=== PATIENT | female | born 1975 | race Caucasian/White ===

== ENCOUNTER → 2017-09-10 11:18 | Outpatient (CLI) | payer BC, SELFPAY ==
[2017-09-11 14:37] LABS: Mucous, Urine 0 SEEN /hpf (<or=2+); Red Blood Cells-Urine 0 SEEN /hpf (0-5); Squamous Epithelial Cells - UA 0 SEEN /hpf (5-10); White Blood Cells 0 SEEN /hpf (0-5)
[2017-09-11 14:44] LABS: Color, Urine Yellow (Yellow); Glucose, Dipstick Normal (Normal); Ketone-Dipstick Negative (Negative); Leukocyte Esterase-Dipstick 25 /ul (Negative); Nitrite-Dipstick Positive (Negative); Occult Blood-Urine Negative /ul (Negative); Protein-Dipstick 15 mg/dl (Negative); Urine Bilirubin Dipstick Negative (Negative); Urine Clarity Cloudy (Clear); Urine Urobilinogen Normal (Normal)
[2017-09-11 14:52] LABS: Bacteria 2+ /hpf (None Seen)
== END ==
PROVIDERS: Family Provider Family Medicine; PCP Family Medicine; Visit Provider Physician Assistant Medical
DX: N39.0 Urinary tract infection, site not specified (principal)
CPT/HCPCS: 81001; 87086; 87088; 87186

== ENCOUNTER 2018-08-14 02:44 | Emergency (ER) | payer BC, SELFPAY ==
[2018-08-14 02:44] VITALS: BP 131/64; PULSE 84; RESP 15; TEMP 36.6; O2SAT 100; BMI 30.5
--- NOTE | 2018-08-14 03:03 | RAD_ITS ---
STUDY: X-RAY CHEST REASON FOR EXAM: Female, 42 years old. Pain and back started Saturday, pain under right breast radiating to back, breathing makes it worse. TECHNIQUE: PA and lateral views of the chest. COMPARISON: 02/21/2017 FINDINGS: There are superimposed monitor leads. There is no demonstrated pneumothorax. Mild hyperinflation. Mild interstitial prominence.. There is no demonstrated pleural abnormality. Normal size heart. Normal mediastinum and john. Normal visualized pulmonary arteries. Normal visualized aortic arch and descending thoracic aorta. Mild degenerative changes of the thoracic spine. Mild loss of vertebral body height T8 vertebral body not significantly changed since previous exam. Normal visualized ribs, clavicles, and shoulders. There is demineralization of osseous structures. There is no demonstrated abnormality of the visualized soft tissue structures of the upper abdomen. RAD/Chest PA and Lateral IMPRESSION: Stable mild hyperinflation, interstitial prominence, mild loss of vertebral body height T8. Bones appear osteopenic. No pulmonary edema, congestive heart failure or confluent pneumonia. There is no demonstrated pneumothorax. Electronically Signed: Luma Guillory MD at 3:52 EST , Service support ,
--- NOTE | 2018-08-14 03:03 | EKG12_ITS ---
Test Reason : CHEST OTHER Blood Pressure : / mmHG Vent. Rate : 073 BPM Atrial Rate : 073 BPM P-R Int : 152 ms QRS Dur : 082 ms QT Int : 362 ms P-R-T Axes : 050 055 049 degrees QTc Int : 398 ms Normal sinus rhythm Low voltage QRS Borderline ECG Confirmed by SELENA SHINE, VIKY ([id number]), sound editor PERLA WEST ([id number]) on 08/18/2018 9:14:31 AM Referred By: JO Confirmed By:VIKY WALTERS MD
[2018-08-14 03:22] LABS: Absolute Lymphocyte Count 4.52 X10^3/ul (0.83-4.51); Basophil# 0.05 X10^3/uL; Basophil% 0.3 % (0-1); Eosinophil# 0.25 X10^3/uL; Eosinophils% 1.7 % (0-5); Hematocrit 41.5 % (37-47); Hemoglobin 14.2 g/dl (12.0-15.0); Lymphocyte # 4.52 X10^3/ul (4.0); Lymphocyte % 30.2 % (19-41); Mean Corp Hgb Conc 34.2 g/gl (32-36); Mean Corpuscular Hgb 32.9 pg (27.0-32.0); Mean Corpuscular Volume 96.3 fL (81-99); Mean Platelet Vol. 11.1 fl (6.2-12.0); Monocyte% 7.3 % (0-10); Platelet Count 236 K/mm3 (150-450); RBC Distribution Width CV 12.4 % (11.6-14.6); RBC Distribution Width SD 42.9 fl (35.1-43.9); Red Blood Count 4.31 M/mm3 (4.2-5.4)
[2018-08-14 03:23] LABS: POSITIVE COUNT NO; POSITIVE DIFFERENTIAL NO; POSITIVE MORPHOLOGY NO
[2018-08-14] MEDS: Morphine 4 MG/ML Syringe IV (03:27)
[2018-08-14] MEDS: Ondansetron 4 MG/2 ML Vial IV (03:28)
[2018-08-14 03:38] LABS: AST(SGOT) 15 U/L (15-37); Alanine Aminotransfer ALT/SGPT 18 U/L (13-56); Albumin, Serum 3.7 g/dL (3.2-5.0); Alkaline Phosphatase 95 U/L (45-117); Anion Gap 5 (5-15); BUN 9 mg/dL (7-18); BUN/Creat Ratio 12.5 RATIO (10-20); Bilirubin, Direct 0.08 mg/dL (0.00-0.30); Calcium,Total 8.7 mg/dL (8.5-10.1); Chloride 107 mmol/L (98-107); Creatinine, Serum 0.72 mg/dL (0.55-1.02); EST Glomerular Filtration Rate 93 mL/min (>60); Est Glom Filt Rate - Afr Amer 112 mL/min (>60); Estimated Creatinine Clearance 82.48 ml/min; Globulin 3.5 g/dL (2.2-4.2); Glucose 91 mg/dL (74-106); Lipase 166 U/L (73-393); Potassium 3.8 mmol/L (3.5-5.1); Protein, Total 7.2 g/dL (6.4-8.2); Sodium Level 142 mmol/L (136-145)
[2018-08-14 03:57] LABS: D-Dimer Quantitative (DVT/PE) 0.53 FEU/ug/m (0.27-0.49)
--- NOTE | 2018-08-14 04:00 | CT_ITS ---
STUDY: CTA CHEST REASON FOR EXAM: Female, 42 years old. Pain on the right breast radiating to back, history of asthma RADIATION DOSAGE (If Supplied By Facility): CTDIvol = ( 8.25 ) mGy, DLP = ( 269.32 ) mGycm TECHNIQUE: The examination was performed with the intravenous administration of 75 ml of Isovue 370 contrast material. Post-processing of the angiographic images was performed, with multiplanar reformation and 3D reconstruction. Individualized dose optimization techniques were used for this CT. COMPARISON: CTA Chest 03/04/2016. Chest x-ray 08/14/2018. FINDINGS: Normal enhancement of the main pulmonary artery and right and left pulmonary arteries. Normal enhancement of the bilateral peripheral pulmonary arteries. There is no demonstrated pulmonary embolism. Normal thoracic aorta and visualized great vessels. There is no demonstrated aortic dissection. Normal heart and pericardium. Normal mediastinum. Normal hilar regions. Normal visualized trachea and bronchi. The lungs are well expanded. Normal pulmonary parenchyma. Normal pleura. Normal chest wall structures. There are slight increase in degenerative changes of thoracic spine. Bilateral intact ribs and sternum. Mild kyphosis. Mild loss of anterior vertebral body height T8 slightly increased since previous examination. Normal visualized upper abdomen. CT/CTA Chest W/WO Contrast IMPRESSION: Normal CTA chest examination, without a demonstrated pulmonary embolism or arterial dissection. Mild increase of degenerative changes of the thoracic spine and loss of vertebral body height T8 vertebral body anteriorly. Electronically Signed: Luma Guillory MD at 4:52 EST , Service support ,
[2018-08-14 04:53] VITALS: BP 112/66; PULSE 76; RESP 18; O2SAT 99
--- NOTE | 2018-08-14 04:56 | ED.VISSUMM ---
- ER Visit Summary Date of Service: 08/14/18 Chief Complaint: Chest pain History of Present Illness: The patient is a 42 F who presents with chest pain. She complains about 4-5 days of right posterior thoracic pain which is sharp in nature. Today she began to have pain under her right breast. This is sharp. It is worse with inspiration or deep breathing. She also feels short of breath she has had a productive cough. She denies fever congestion rhinorrhea. She denies any leg pain or swelling. No prior history of DVT or pulmonary embolism, no known coagulopathies, no recent travel or immobilization. She did have a similar presentation in 2016 and underwent evaluation including CTA of the chest which was unremarkable and this was ultimately attributed to pleurisy. Physical Examination: Afebrile vitals are normal Moist mucous membranes Heart regular rate and rhythm Lungs are clear she does have some right sided chest wall tenderness no rash Abdomen soft nontender nondistended Extremities nontender without edema Alert Test Results: EKG shows normal sinus rhythm at a rate of 73. Labs are notable for white blood cell count 15.0 normal hepatic function and lipase, negative troponin, d-dimer 0.53. Two-view chest x-ray shows stable hyperinflation and some interstitial prominence no edema CHF or confluent pneumonia. CTA of the chest was normal. Emergency Department Course and Treatment: Patient underwent workup as above which is only notable for leukocytosis. No infiltrate on chest x-ray or CT of the chest. Number embolism is ruled out. Given that she has had a recent productive cough this may be related to pleurisy and chest wall pain. She was given a prescription for naproxen. She was advised to follow-up as an outpatient with her primary care physician but understands to return for new or worsening symptoms. She was instructed on specific signs and symptoms to monitor for. All questions answered bedside. Patient discharged. Treatment Plan: [] Disposition: Discharge Impression: Pleurisy This note was generated with [employer] ([employer]) dictation software. It may contain incorrect words, spelling, and punctuation that were not noted in review of the chart prior to signing ED Disposition - Plan for ED Patient: Chief Complaint: Chest Other Referrals: Trey Villalobos MD [Primary Care Provider] -
--- NOTE | 2018-08-14 05:01 | ED.DEP ---
ED Disposition - Plan for ED Patient: Chief Complaint: Chest Other Instructions: ED Chest Pain Pleurisy Prescriptions: Naproxen [Naprosyn] 500 mg PO BID #20 tab Referrals: Trey Villalobos MD [Primary Care Provider] -
[2018-08-14 05:04] VITALS: BP 117/73; PULSE 80; RESP 17; O2SAT 100
--- OUTSIDE RECORDS SUMMARY | 2018-10-18 17:39 | XMS RPT_ITS ---
:1975 Author Organization OH[facility] Care Team Providers Name Role Phone JUNIE BRIAN (WAITER AND CASHIER) Attending Unavailable PATRICIA TATE (WAITER AND CASHIER) Attending Unavailable Trey Villalobos Primary Care Unavailable Javan Adrian Attending Unavailable Johan Cardoza Attending Unavailable Trey Villalobos Referring Unavailable Trey Villalobos Primary Care Unavailable Janet Aleman Attending Unavailable Janet Aleman Referring Unavailable Trey Villalobos Primary Care Unavailable PROBLEMS PROBLEMS DATE TYPE CONDITION / CODE ATTENDING STATUS SOURCE 09/11/2017 Unknown N39.0 - Urinary Ash Active David tract infection, Janet Community site not Hospital specified / Repository N39.0(ICD-10) PROCEDURES PROCEDURES No Procedure Records FoundRESULTS RESULTS 12 LEAD ELECTROCARDIOGRAM Observed: 08/18/2018 Status: F Source: [place] 9:15 AM [facility] REPOSITORY [facility] Cardiovascular Services [address] [place] [address] 12 Lead EKG 08/14/18 0314 MR#: [id number] Acct: [id number] Name: RADHA PAPPAS Rep #: [id number] : 1975 42 From: Kumar Galan MD Attending Dr: Status: DEP ER Ordering Dr: Javan Adrian MD Date: 08/14/18 Location: ED Sex: F C Admitted: Test Reason : CHEST OTHER Blood Pressure : / mmHG Vent. Rate : 073 BPM Atrial Rate : 073 BPM P-R Int : 152 ms QRS Dur : 082 ms QT Int : 362 ms P-R-T Axes : 050 055 049 degrees QTc Int : 398 ms Normal sinus rhythm Low voltage QRS Borderline ECG Confirmed by KUMAR GALAN MD ([id number]), video effects editor PERLA WEST ([id number]) on 08/18/2018 9:14:31 AM Referred By: JO Confirmed By:KUMAR GALAN MD 08/18/18 0914 Date Kumar Galan MD CC: Javan Adrian MD; Trey Villalobos MD Signed PROGRESS Observed: 08/15/2018 Status: COMPLETED Source: [place] 1:[address] [facility] [place] REPOSITORY [facility] ID: [id number] Author: Junie Brian Service: (none) Author Type: Nurse Practitioner Type: Progress Notes Filed: 08/15/2018 3:16 PM Note Text: HPI/CC: Radha Pappas is a 42 year old female who presents to the office today for ER follow-up. She was to [facility] on 08/14/18 following c/o right sided chest discomfort. Dx: pleurisy Testing completed at the facility: EKG, CXRAY, CTA of chest (all normal). Labwork completed at the facility: CBC (WBC 15); normal hepatic and lipase, neg trop, d-dime 0.53. Other specialist and follow up care: n/a. Refers that she still just doesn't feel good. Refers that she hasn't been sick. Chest xray was normal. CT scan was normal. Refers that she continues with right sided chest pain. Refers that it is under her breast and will shoot up. Hurts to cough/sneeze. She is taking the naproxen for pain. Refers that she is taking it twice daily and last took this morning. She did use her inhaler once, which did help a little bit, but reports needs a new inhaler. HISTORIES: PAST MEDICAL HISTORY Diagnosis Date - Allergic rhinitis, cause unspecified Allergic rhinitis - Dysmenorrhea - Ovarian cyst - Unspecified asthma(493.90) Asthma Unspecified PAST SURGICAL HISTORY Procedure Laterality Date - EXTRACTION ERUPTED TOOTH/EXR - NONE FAMILY HISTORY Problem Relation Age of Onset - Adopted: Yes - Cancer Mother 45 Ovarian Ca in mother [survived] - Diabetes Maternal Grandfather - Diabetes Paternal Grandmother - Diabetes Paternal Grandfather - Heart Maternal Grandmother - Breast Cancer Other Cousin - Breast Cancer Maternal Aunt - Cancer Paternal Aunt Lung Cancer Social History Marital status: Spouse name: Esperanza Years of education: Number of children: 1 Occupational History Occupation Employer Comment Student [employer]* [employer] Social History Main Topics Smoking status: Former Smoker Packs/day: 0.25 Years: 10.00 Types: Cigarettes Quit date: 07/29/2008 Smokeless tobacco: Never Used Alcohol use: No Drug use: No Sexual activity: Yes Partners with: Male control/protection: Vasectomy Current Outpatient Prescriptions on File Prior to Visit: PROAIR HFA 90 mcg/actuation inhaler Inhale 2 (TWO) puffs every FOUR hours for 7 (SEVEN) days. famotidine (PEPCID) 20 mg tablet Take 20 mg by mouth once daily. EPINEPHrine (AUVI-Q) 0.3 mg/0.3 mL auto-injector Inject 0.3 mL intramuscularly as needed (for allergic reaction.Seek emergent medical care immediately after use.Dispense:1 2-packw/guide dog trainer). cetirizine (ZYRTEC) 10 mg tablet Take 1 tablet by mouth once daily as needed. COMPOUNDED PRESCRIPTION Nebulizer for home use. Diagnosis: asthma exacerbation FLUOCINONIDE 0.05 % TOPICAL CREAM Use as directed INHALATIONAL SPACING DEVICE [facility]. Use with combivent as directed No current facility-administered medications on file prior to visit. ALLERGIES Allergen Reactions - Albuterol Other: See Comments causes palpitations and tachycardia - Amoxacillin [Amoxic* Rash, GI Upset - Ceftin [Cefuroxime * GI Upset - Doxycycline GI Upset - Environmental Aller* Cats, dogs, molds - Toradol [Ketorolac * GI Upset nausea - Tramadol GI Upset PHYSICAL EXAMINATION: BP 124/78 (BP Site: Left Arm, BP Position: Sitting, BP Cuff Size: Regular Adult) Pulse 86 Temp 36.7 ?C (98.1 ?F) (Left Tympanic) Resp 14 Wt 75.8 kg (167 lb) SpO2 100% BMI 29.96 kg/m? General appearance: Well appearing, alert, uncomfortable, well-hydrated, well nourished. Skin: Skin color, texture, turgor normal, no suspicious rashes or lesions Head: Normocephalic, no masses, lesions, tenderness or abnormalities Eyes: Anicteric sclera. Pupils are equally round and reactive to light. Extraocular movements are intact. Ears: External ears normal, canals clear, TM's normal Nose/Sinuses: Nares normal, septum midline, mucosa normal, no drainage or sinus tenderness Oropharynx: Lips, mucosa, and tongue normal, teeth and gums normal, oropharynx normal Neck: Supple, no adenopathy Lungs: Lungs clear to auscultation. No wheezing, rhonchi, rales Heart: RRR without murmur, gallop, or rubs. No ectopy. Pain reproducible in the intercostal spaces of the right chest wall. Abdomen: Abdomen soft, non-tender. Bowel sounds normal. No masses, organomegaly Extremities: No deformities, edema, skin discoloration, clubbing or cyanosis. Good capillary refill. Neuro: Gait normal. ASSESSMENT/PLAN: 1. Pleurisy - ICD9: 511.0, ICD10: R09.1 Reassured. Will start prednisone taper, hold nsaids while on prednisone. Heat to the area. Splinting. Cough/deep breath. Limited vicodin. PDMP website checked and validated. All prescriptions have been APPROPRIATELY filled. No suspicious activity was identified. 08/15/2018 by Junie Brian APRN.WAITER AND CASHIER - PREDNISONE 10 MG TABLET - HYDROCODONE 5 MG-ACETAMINOPHEN 325 MG TABLET Discussed treatment plan and patient voices understanding. Patient's questions answered appropriately. Medications and potential side effects were discussed and patient voices understanding. Return to the office as scheduled or as needed for worsening/no improvement. Junie Brian APRN.WAITER AND CASHIER CNOV Observed: 08/15/2018 Status: COMPLETED Source: [place] 1:40 PM [facility] REPOSITORY Office Visit (FAMPWS) RADHA PAPPAS ([id number]) 1975 F Date Time Provider Department 08/15/18 1:40 PM JUNIE BRIAN ([place]) FAMPWS During your visit today, we recorded the following information about you: Temperature Pulse Respiration Blood pressure 98.1 degrees 86/minute 14/minute 124/78 Weight 75.8 kg Junie Brian APRN.CNP 08/15/2018 3:16 PM Signed HPI/CC: Radha Pappas is a 42 year old female who presents to the office today for ER follow-up. She was to [facility] on 08/14/18 following c/o right sided chest discomfort. Dx: pleurisy Testing completed at the facility: EKG, CXRAY, CTA of chest (all normal). Labwork completed at the facility: CBC (WBC 15); normal hepatic and lipase, neg trop, d-dime 0.53. Other specialist and follow up care: n/a. Refers that she still just doesn't feel good. Refers that she hasn't been sick. Chest xray was normal. CT scan was normal. Refers that she continues with right sided chest pain. Refers that it is under her breast and will shoot up. Hurts to cough/sneeze. She is taking the naproxen for pain. Refers that she is taking it twice daily and last took this morning. She did use her inhaler once, which did help a little bit, but reports needs a new inhaler. HISTORIES: PAST MEDICAL HISTORY Diagnosis Date - Allergic rhinitis, cause unspecified Allergic rhinitis - Dysmenorrhea - Ovarian cyst - Unspecified asthma(493.90) Asthma Unspecified PAST SURGICAL HISTORY Procedure Laterality Date - EXTRACTION ERUPTED TOOTH/EXR - NONE FAMILY HISTORY Problem Relation Age of Onset - Adopted: Yes - Cancer Mother 45 Ovarian Ca in mother [survived] - Diabetes Maternal Grandfather - Diabetes Paternal Grandmother - Diabetes Paternal Grandfather - Heart Maternal Grandmother - Breast Cancer Other Cousin - Breast Cancer Maternal Aunt - Cancer Paternal Aunt Lung Cancer Social History Marital status: Spouse name: Esperanza Years of education: Number of children: 1 Occupational History Occupation Employer Comment Student [employer]* [employer] Social History Main Topics Smoking status: Former Smoker Packs/day: 0.25 Years: 10.00 Types: Cigarettes Quit date: 07/29/2008 Smokeless tobacco: Never Used Alcohol use: No Drug use: No Sexual activity: Yes Partners with: Male control/protection: Vasectomy Current Outpatient Prescriptions on File Prior to Visit: PROAIR HFA 90 mcg/actuation inhaler Inhale 2 (TWO) puffs every FOUR hours for 7 (SEVEN) days. famotidine (PEPCID) 20 mg tablet Take 20 mg by mouth once daily. EPINEPHrine (AUVI-Q) 0.3 mg/0.3 mL auto-injector Inject 0.3 mL intramuscularly as needed (for allergic reaction.Seek emergent medical care immediately after use.Dispense:1 2-packw/guide dog trainer). cetirizine (ZYRTEC) 10 mg tablet Take 1 tablet by mouth once daily as needed. COMPOUNDED PRESCRIPTION Nebulizer for home use. Diagnosis: asthma exacerbation FLUOCINONIDE 0.05 % TOPICAL CREAM Use as directed INHALATIONAL SPACING DEVICE [facility]. Use with combivent as directed No current facility-administered medications on file prior to visit. ALLERGIES Allergen Reactions - Albuterol Other: See Comments causes palpitations and tachycardia - Amoxacillin [Amoxic* Rash, GI Upset - Ceftin [Cefuroxime * GI Upset - Doxycycline GI Upset - Environmental Aller* Cats, dogs, molds - Toradol [Ketorolac * GI Upset nausea - Tramadol GI Upset PHYSICAL EXAMINATION: BP 124/78 (BP Site: Left Arm, BP Position: Sitting, BP Cuff Size: Regular Adult) Pulse 86 Temp 36.7 ?C (98.1 ?F) (Left Tympanic) Resp 14 Wt 75.8 kg (167 lb) SpO2 100% BMI 29.96 kg/m? General appearance: Well appearing, alert, uncomfortable, well-hydrated, well nourished. Skin: Skin color, texture, turgor normal, no suspicious rashes or lesions Head: Normocephalic, no masses, lesions, tenderness or abnormalities Eyes: Anicteric sclera. Pupils are equally round and reactive to light. Extraocular movements are intact. Ears: External ears normal, canals clear, TM's normal Nose/Sinuses: Nares normal, septum midline, mucosa normal, no drainage or sinus tenderness Oropharynx: Lips, mucosa, and tongue normal, teeth and gums normal, oropharynx normal Neck: Supple, no adenopathy Lungs: Lungs clear to auscultation. No wheezing, rhonchi, rales Heart: RRR without murmur, gallop, or rubs. No ectopy. Pain reproducible in the intercostal spaces of the right chest wall. Abdomen: Abdomen soft, non-tender. Bowel sounds normal. No masses, organomegaly Extremities: No deformities, edema, skin discoloration, clubbing or cyanosis. Good capillary refill. Neuro: Gait normal. ASSESSMENT/PLAN: 1. Pleurisy - ICD9: 511.0, ICD10: R09.1 Reassured. Will start prednisone taper, hold nsaids while on prednisone. Heat to the area. Splinting. Cough/deep breath. Limited vicodin. PDMP website checked and validated. All prescriptions have been APPROPRIATELY filled. No suspicious activity was identified. 08/15/2018 by Junie Brian APRN.CNP - PREDNISONE 10 MG TABLET - HYDROCODONE 5 MG-ACETAMINOPHEN 325 MG TABLET Discussed treatment plan and patient voices understanding. Patient's questions answered appropriately. Medications and potential side effects were discussed and patient voices understanding. Return to the office as scheduled or as needed for worsening/no improvement. KAYLA Argueta APRN.CNP 08/15/2018 2:08 PM Signed 1. Start the prednisone taper. The prednisone taper will be 4 tablets for 3 days; 3 tablets for 3 days; 2 tablets for 3 days; then 1 tablet for 3 days. Please do no use other anti-inflammatories (like ibuprofen, aleve, naproxen, etc) while you are on this medication. 2. You can still use tylenol or the pain medication as needed. 3. Moist heat or rotate heat/ice to the area. 4. Splint the area when coughing. 5. Cough and deep breath to prevent pneumonia. Referring Provider: SELF [[id number]] Allergies As of Date: 08/15/2018 Noted Allergy Reaction ALBUTEROL 02/20/2012 14 - Other: See Comments Comments: causes palpitations and tachycardia AMOXACILLIN (AMOXICILLIN) 09/13/2007 2 - Rash 8 - GI Upset CEFTIN (CEFUROXIME AXETIL) 09/15/2008 8 - GI Upset DOXYCYCLINE 03/18/2012 8 - GI Upset Environmental allergies [Other] 11/10/2008 Comments: Cats, dogs, molds TORADOL (KETOROLAC TROMETHAMINE) 11/03/2011 8 - GI Upset Comments: nausea TRAMADOL 01/29/2012 8 - GI Upset Date Reviewed: 08/15/2018 Reviewed by: Belinda Greer Lead Python Developer - Fully Assessed Reason for Visit: ED Follow-up [821] Cmt: pleurisy Primary Visit Diagnosis:Pleurisy [R09.1] Order(s):PROAIR HFA 90 mcg/actuation inhalerInhale 2 Puffs as instructed every 6 hours as needed.Disp: 1 InhalerRfl: 3 predniSONE (DELTASONE) 10 mg tabletTake 4 tabs daily x 3 days, then 3 tabs x 3 days, 2 tabs x 3 days, then 1 tab x3 days with food.Disp: 30 tabletRfl: 0 HYDROcodone-acetaminophen (NORCO) 5-325 mg per tabletTake 1 tablet by mouth every 8 hours as needed for Pain for up to 7 days.Disp: 20 tabletRfl: 0 Prescriptions as of 08/15/2018 Sig: PROAIR HFA 90 MCG/ACTUATION A* Inhale 2 Puffs as instructed * EPINEPHRINE 0.3 MG/0.3 ML INJ* Inject 0.3 mL intramuscularly* CETIRIZINE 10 MG TABLET Take 1 tablet by mouth once d* * COMPOUNDED PRESCRIPTION Nebulizer for home use. Diagn* * INHALATIONAL SPACING DEVICE M* Use with combivent as directed PREDNISONE 10 MG TABLET Take 4 tabs daily x 3 days, t* HYDROCODONE 5 MG-ACETAMINOPHE* Take 1 tablet by mouth every * Problem List As Of Date 08/15/2018 Noted Resolved Unspecified Asthma [J45.909] INVALID FOR*05/09/2009 ALLERGIC RHINITIS NOS [J30.9] INVALID FOR* TOBACCO USE DISORDER [F17.200] INVALID FOR*01/11/2009 Abdominal pain, other specified site [R10.9] INVALID FOR*11/22/2011 Extrinsic asthma [J45.909] INVALID FOR* More... Dysmenorrhea [N94.6] INVALID FOR*11/22/2011 Abdominal pain, right lower quadrant [R10.31] INVALID FOR*02/09/2011 Sprain of neck [S13.9XXA] INVALID FOR*11/22/2011 GERD (gastroesophageal reflux disease) [K21.9] INVALID FOR* More... Other instructions from your clinician: 1. Start the prednisone taper. The prednisone taper will be 4 tablets for 3 days; 3 tablets for 3 days; 2 tablets for 3 days; then 1 tablet for 3 days. Please do no use other anti-inflammatories (like ibuprofen, aleve, naproxen, etc) while you are on this medication. 2. You can still use tylenol or the pain medication as needed. 3. Moist heat or rotate heat/ice to the area. 4. Splint the area when coughing. 5. Cough and deep breath to prevent pneumonia. Prescriptions ordered this encounter Disp Refills Start End PROAIR HFA 90 MCG/ACTUATION AEROSOL * 1 In* 3 08/15/2018 Route: INHALATION Sig: Inhale 2 Puffs as instructed every 6 hours as needed. PREDNISONE 10 MG TABLET 30 t* 0 08/15/2018 08/27/2018 Sig: Take 4 tabs daily x 3 days, then 3 tabs x 3 days, 2 tabs x 3 days, then 1 tab x3 days with food. HYDROCODONE 5 MG-ACETAMINOPHEN 325 M* 20 t* 0 08/15/2018 08/22/2018 Class: Print RX Route: ORAL Sig: Take 1 tablet by mouth every 8 hours as needed for Pain for up to 7 days. Medications Discontinued During This Encounter famotidine (PEPCID) 20 mg tablet 05/09/2017 08/15/2018 Class: Historical Med Route: ORAL Sig: Take 20 mg by mouth once daily. Disc: Course of therapy completed FLUOCINONIDE 0.05 % TOPICAL CREAM 15g 1 04/20/2010 08/15/2018 Route: TOPICAL Sig: Use as directed Disc: Other PROAIR HFA 90 mcg/actuation inhaler 0 02/19/2017 08/15/2018 Class: Historical Med Sig: Inhale 2 (TWO) puffs every FOUR hours for 7 (SEVEN) days. Disc: Reason for discontinue is not on file. Letter Text Junie Brian CNP [address] [place], [place] [address] 08/15/2018 TO WHOM IT MAY CONCERN: This is to confirm that Radha Pappas had an appointment and was seen at the [facility] in the Department of Family Medicine by Junie Brian CNP on 08/15/2018. Please excuse from work on the nights of 08/15/18 and 08/16/18. Sincerely yours, Junie Brian CNP Encounter Status:Closed by JUNIE BRIAN CNP on 08/15/18 EMERGENCY DEPARTMENT Observed: 08/14/2018 Status: F Source: [place] SUMMARY 5:01 AM [facility] Medical Records Department [address] [place] [address] Emergency Department Summary 08/14/18 0456 MR#: [id number] Acct: [id number] Name: RADHA PAPPAS Rep #: [id number] : 1975 42 From: Javan Adrian MD PCP: Trey Villalobos MD Status: REG ER - ER Visit Summary Date of Service: 08/14/18 Chief Complaint: Chest pain History of Present Illness: The patient is a 42 F who presents with chest pain. She complains about 4-5 days of right posterior thoracic pain which is sharp in nature. Today she began to have pain under her right breast. This is sharp. It is worse with inspiration or deep breathing. She also feels short of breath she has had a productive cough. She denies fever congestion rhinorrhea. She denies any leg pain or swelling. No prior history of DVT or pulmonary embolism, no known coagulopathies, no recent travel or immobilization. She did have a similar presentation in 2016 and underwent evaluation including CTA of the chest which was unremarkable and this was ultimately attributed to pleurisy. Physical Examination: Afebrile vitals are normal Moist mucous membranes Heart regular rate and rhythm Lungs are clear she does have some right sided chest wall tenderness no rash Abdomen soft nontender nondistended Extremities nontender without edema Alert Test Results: EKG shows normal sinus rhythm at a rate of 73. Labs are notable for white blood cell count 15.0 normal hepatic function and lipase, negative troponin, d-dimer 0.53. Two-view chest x-ray shows stable hyperinflation and some interstitial prominence no edema CHF or confluent pneumonia. CTA of the chest was normal. Emergency Department Course and Treatment: Patient underwent workup as above which is only notable for leukocytosis. No infiltrate on chest x-ray or CT of the chest. Number embolism is ruled out. Given that she has had a recent productive cough this may be related to pleurisy and chest wall pain. She was given a prescription for naproxen. She was advised to follow-up as an outpatient with her primary care physician but understands to return for new or worsening symptoms. She was instructed on specific signs and symptoms to monitor for. All questions answered bedside. Patient discharged. Treatment Plan: [] Disposition: Discharge Impression: Pleurisy This note was generated with [employer] dictation software. It may contain incorrect words, spelling, and punctuation that were not noted in review of the chart prior to signing ED Disposition - Plan for ED Patient: Chief Complaint: Chest Other Referrals: Trey Villalobos MD [Primary Care Provider] - What to do if you have Problems For any increased pain, shortness of breath, bleeding, nausea or vomiting, chest pain, or any unexpected problems, contact your Primary Care Provider. Call [facility] ([phone]) or report to the closest Emergency Room. Call 911 if necessary. 08/14/18 0501 <Electronically signed by Javan Adrian MD> Date Javan Adrian MD Cosigner Signature (If Indicated): Date CC: Trey Villalobos MD DISCHARGE INSTRUCTION Observed: 08/14/2018 Status: F Source: [place] 5:01 AM [facility] REPOSITORY [facility] Medical Records Department [address] [place] [address] Discharge Instruction 08/14/18 050 MR#: [id number] Acct: [id number] Name: STACEYALONSO FERNÁNDEZDalila Metzger Rep #: [id number] : 1975 42 From: Javan Adrian MD PCP: Trey Villalobos MD Status: REG ER ED Disposition - Plan for ED Patient: Chief Complaint: Chest Other Instructions: ED Chest Pain Pleurisy Prescriptions: Naproxen [Naprosyn] 500 mg PO BID #20 tab Referrals: Trey Villalobos MD [Primary Care Provider] - What to do if you have Problems For any increased pain, shortness of breath, bleeding, nausea or vomiting, chest pain, or any unexpected problems, contact your Primary Care Provider. Call [email or web address] ([phone]) or report to the closest Emergency Room. Call 911 if necessary. 08/14/18 050 <Electronically signed by Javan Adrian MD> Date Javan Adrian MD Cosigner Signature (If Indicated): Date CC: Trey Villalobos MD CTA CHEST W/WO Observed: 08/14/2018 Status: F Source: [place] CONTRAST 4:00 AM [facility] REPOSITORY [facility] Imaging Services [address] [place] [address] CTA Chest W/WO Contrast MR#: [id number] Acct: [id number] Name: STACEYALONSO FERNÁNDEZDalila Metzger Rep #: [id number] : 1975 F 42 From: Luma Guillory MD PCP: Trey Villalobos MD Status: REG ER Study: CTA Chest W/WO Contrast Date of Exam: 08/14/18 Exam# [id number] Ordering Dr: Javan Adrian MD STUDY: CTA CHEST REASON FOR EXAM: Female, 42 years old. Pain on the right breast radiating to back, history of asthma RADIATION DOSAGE (If Supplied By Facility): CTDIvol = ( 8.25 ) mGy, DLP = ( 269.32 ) mGycm TECHNIQUE: The examination was performed with the intravenous administration of 75 ml of Isovue 370 contrast material. Post-processing of the angiographic images was performed, with multiplanar reformation and 3D reconstruction. Individualized dose optimization techniques were used for this CT. COMPARISON: CTA Chest 03/04/2016. Chest x-ray 08/14/2018. FINDINGS: Normal enhancement of the main pulmonary artery and right and left pulmonary arteries. Normal enhancement of the bilateral peripheral pulmonary arteries. There is no demonstrated pulmonary embolism. Normal thoracic aorta and visualized great vessels. There is no demonstrated aortic dissection. Normal heart and pericardium. Normal mediastinum. Normal hilar regions. Normal visualized trachea and bronchi. The lungs are well expanded. Normal pulmonary parenchyma. Normal pleura. Normal chest wall structures. There are slight increase in degenerative changes of thoracic spine. Bilateral intact ribs and sternum. Mild kyphosis. Mild loss of anterior vertebral body height T8 slightly increased since previous examination. Normal visualized upper abdomen. CT/CTA Chest W/WO Contrast IMPRESSION: Normal CTA chest examination, without a demonstrated pulmonary embolism or arterial dissection. Mild increase of degenerative changes of the thoracic spine and loss of vertebral body height T8 vertebral body anteriorly. Electronically Signed: Luma Guillory MD at 4:52 EST , Service support , CC: Javan Adrian MD; Trey Villalobos MD Scale And Skip Car Operator: Signed CBC W/DIFF, AUTOMATED Collected: 08/14/2018 Status: F Source: [place] 3:10 AM [facility] [place] REPOSITORY TYPE CODE TESTS RESULT OUT OF RANGE REFERENCE UNITS LAB L100.1000 4.4-11.0 K/mm3 High WBC 15.0 LAB L100.1200 4.2-5.4 M/mm3 Normal RBC 4.31 LAB L100.1300 12.0-15.0 g/dl Normal HGB 14.2 LAB L100.1400 37-47 % Normal HCT 41.5 LAB L100.1500 81-99 fL Normal MCV 96.3 LAB L100.1600 27.0-32.0 pg High MCH 32.9 LAB L100.1700 32-36 g/gl Normal MCHC 34.2 LAB L100.1810 11.6-14.6 % Normal RDW CV 12.4 LAB L100.1820 35.1-43.9 fl Normal RDW SD 42.9 LAB L100.1900 150-450 K/mm3 Normal PLT 236 LAB L100.2000 6.2-12.0 fl Normal MPV 11.1 LAB L100.2100 47-70 % Normal NEUT% 60.0 LAB L100.2200 19-41 % Normal LY% 30.2 LAB L100.2300 0-10 % Normal MONO% 7.3 LAB L100.2400 0-5 % Normal EO% 1.7 LAB L100.2500 0-1 % Normal BASO% 0.3 LAB L100.2550 0.0-0.9 % Normal IM GRAN % 0.500 Result Comment: IG% - Immature Granulocytes (promyelocytes, myelocytes and metamyelocytes) > 1% indicates that a LEFT SHIFT is Present. LAB L100.2620 2.0-7.7 X10 3/uL High Absolute Neut 9.0 LAB L100.2720 0.83-4.51 X10 3/ul High Absolute Lymph 4.52 Performed By: #### L100.0100 #### [facility] [place], [address] BASIC METABOLIC Collected: 08/14/2018 Status: F Source: [place] PROFILE (BMP) 3:10 AM [facility] REPOSITORY TYPE CODE TESTS RESULT OUT OF RANGE REFERENCE UNITS LAB L501.0100 74-106 mg/dL Normal GLU 91 Result Comment: Please note revised GLUCOSE reference range effective 2017. LAB L501.1000 7-18 mg/dL Normal BUN 9 LAB L501.1100 0.55-1.02 mg/dL Normal CREAT,SERUM 0.72 Result Comment: The validity of the calculated GFR AND GFRAA in patients over 70 years has not been determined. Clinical correlation is essential. LAB L501.1110 >60 mL/min Normal EST GFR 93 Result Comment: Non- GFR Calc LAB L501.1115 >60 mL/min Normal EST GFR - AA 112 Result Comment: GFR Calc LAB L501.1255 ml/min Normal Estimated CRCL 82.48 LAB L501.1300 10-20 RATIO Normal BUN/CRE 12.5 LAB L501.2200 8.5-10 mg/dL Normal .1 CA 8.7 LAB L501.5300 136-14 mmol/L Normal 5 NA 142 LAB L501.5600 3.5-5. mmol/L Normal 1 K 3.8 LAB L501.5900 98-107 mmol/L Normal CL 107 LAB L501.6100 21.0-3 mmol/L Normal 2.0 CO2 30.0 LAB L501.6200 5-15 Normal GAP 5 Performed By: #### L500.2500, L500.3400, L501.2450, L501.4010 #### [facility] [address] [facility] [place], [place], [id number] LIVER PROFILE Collected: 08/14/2018 Status: F Source: [place] 3:10 AM [facility] REPOSITORY TYPE CODE TESTS RESULT OUT OF RANGE REFERENCE UNITS LAB L501.1500 6.4-8.2 g/dL Normal T PROT 7.2 LAB L501.1800 3.2-5.0 g/dL Normal ALB 3.7 LAB L501.1950 2.2-4.2 g/dL Normal GLOB 3.5 LAB L501.4100 15-37 U/L Normal AST 15 LAB L501.4305 45-117 U/L Normal ALK P 95 LAB L501.4405 13-56 U/L Normal ALT 18 LAB L501.4600 0.20-1.00 mg/dL Low T BILI 0.10 LAB L501.4700 0.00-0.30 mg/dL Normal D BILI 0.08 Performed By: #### L500.2500, L500.3400, L501.2450, L501.4010 #### [facility] [address] [facility]. [place], [place], [address] LIPASE Collected: 08/14/2018 Status: F Source: [place] 3:10 AM [facility] REPOSITORY TYPE CODE TESTS RESULT OUT OF RANGE REFERENCE UNITS LAB L501.2450 73-393 U/L Normal LIPASE 166 Performed By: #### L500.2500, L500.3400, L501.2450, L501.4010 #### [facility] [address] [place], [address] TROPONIN-I Collected: 08/14/2018 Status: F Source: [place] 3:10 AM [facility] REPOSITORY TYPE CODE TESTS RESULT OUT OF RANGE REFERENCE UNITS LAB L501.4010 <0.045 ng/mL Normal < 0.015 TROPONIN-I Result Comment: TROPONIN-I EXPECTED VALUES <0.045 Negative 0.045 - 0.590 Consistent with Cardiac Damage > OR = 0.600 Critical Value Not every elevated troponin is indicative of OH. These values should be used with clinical judgement in examining the patient's clinical picture for diagnosis. To establish a diagnosis of OH versus myocardial injury, there must be a demonstrated rise and/or fall in the troponin values, in addition to ischemic symptoms, EKG changes, new regional wall motion abnormality, and/or angiographical evidence. PLEASE NOTE: REFERENCE RANGES EDITED 17 Performed By: #### L500.2500, L500.3400, L501.2450, L501.4010 #### [facility] [address] [place], [address] D-DIMER QUANTITATIVE Collected: 08/14/2018 Status: F Source: [place] (DVT/PE) 3:10 AM [facility] REPOSITORY TYPE CODE TESTS RESULT OUT OF RANGE REFERENCE UNITS LAB L300.8000 0.27-0.49 FEU/ug/m High alert D-DIMER 0.53 QUANT Result Comment: D-Dimer ELEVATED (>0.49): Additional studies and clinical assessments are indicated to conclude diagnosis of: Deep Vein Thrombosis (DVT) or Pulmonary Embolism (PE) CRITICAL VALUE VERIFIED. CALLED TO FILIBERTO MARTINEZ 08/14/18 0356 [facility]. RESULTS READ BACK BY SAME . Performed By: #### L300.8000 #### [facility] [address] [place], [address] CHEST PA AND LATERAL Observed: 08/14/2018 Status: F Source: [place] 3:05 AM [facility] REPOSITORY [facility] Imaging Services [address] [address] Chest PA and Lateral MR#: [id number] Acct: [id number] Name: RADHA PAPPAS Rep #: [id number] : 1975 F 42 From: Luma Guillory MD PCP: Trey Villalobos MD Status: REG ER Study: Chest PA and Lateral Date of Exam: 08/14/18 Exam# [id number] Ordering Dr: Javan Adrian MD STUDY: X-RAY CHEST REASON FOR EXAM: Female, 42 years old. Pain and back started Saturday, pain under right breast radiating to back, breathing makes it worse. TECHNIQUE: PA and lateral views of the chest. COMPARISON: 02/21/2017 FINDINGS: There are superimposed monitor leads. There is no demonstrated pneumothorax. Mild hyperinflation. Mild interstitial prominence.. There is no demonstrated pleural abnormality. Normal size heart. Normal mediastinum and john. Normal visualized pulmonary arteries. Normal visualized aortic arch and descending thoracic aorta. Mild degenerative changes of the thoracic spine. Mild loss of vertebral body height T8 vertebral body not significantly changed since previous exam. Normal visualized ribs, clavicles, and shoulders. There is demineralization of osseous structures. There is no demonstrated abnormality of the visualized soft tissue structures of the upper abdomen. RAD/Chest PA and Lateral IMPRESSION: Stable mild hyperinflation, interstitial prominence, mild loss of vertebral body height T8. Bones appear osteopenic. No pulmonary edema, congestive heart failure or confluent pneumonia. There is no demonstrated pneumothorax. Electronically Signed: Luma Guillory MD at 3:52 EST , Service support , CC: Javan Adrian MD; Trey Villalobos MD Scale And Skip Car Operator: Signed PROGRESS Observed: 08/11/2018 Status: COMPLETED Source: [place] 9:[address] 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 She will call to schedule when she's able. She stated she was having some pain today on right side rib cage area and wanted to be seen for an appointment. I told her hours and days of open access and she plans to utilize that if needed. Patient identified by name and . Kayy Guzman CMA PROGRESS Observed: 08/07/2018 Status: COMPLETED Source: [place] 12:[address] [facility] REPOSITORY HNO ID: [id number] Author: Kayy Guzman Service: (none) Author Type: Bulk Loader Type: Progress Notes Filed: 08/11/2018 9:22 AM Note Text: Left message for patient to return call #[phone] PROGRESS Observed: 08/06/2018 Status: COMPLETED Source: [place] 1:54 PM [facility] REPOSITORY HNO ID: [id number] Author: Kayy Guzman Service: (none) Author Type: Bulk Loader Type: Progress Notes Filed: 08/11/2018 9:22 AM Note Text: [employer] message sent. PROGRESS Observed: 08/06/2018 Status: COMPLETED Source: [place] 1:[address] [facility] REPOSITORY HNO ID: [id number] Author: Kayy Guzman Service: (none) Author Type: Bulk Loader Type: Progress Notes Filed: 08/11/2018 9:22 AM Note Text: [facility] CARE GAP REGISTRY DOCUMENTATION (OUTSIDE TEAMLET) Provider Action/FYI: PSR Action/FYI: Due for Physical (not seen since 2015) Patient identified by name and date of . Last BP/Labs: Blood Pressure: Last 3 Encounter BP Readings: Date: BP: 09/26/2017 108/60 06/06/2017 128/73 09/24/2016 128/80 Lipids: No results found for: CHOL No results found for: HDL LDL Chol, [place] (mg/dL) Date Value 11/23/2011 97 No results found for: TG HGB A1C: No results found for: HBA1C TSH: TSH (uU/mL) Date Value 11/09/2011 1.810 ) ? Patient has the following care gap registry disease diagnosis:Asthma ? Patient has the following open care gaps: Health Maintenance Due: ANNUAL PCP TEAM CHRONIC DISEASE VISIT due on 10/29/1991 DTAP,TDAP,TD(2 - Tdap) due on 04/28/2014 MAMMOGRAM due on 12/13/2016 INFLUENZA(1) due on 03/29/2018 ? Last office visit: 03/01/2016 ? Future office visit:Physical next available with pcp or signal manager Kayy Guzman CMA CNPTOUTREACH Observed: 08/06/2018 Status: COMPLETED Source: [place] 12:00 AM [facility] REPOSITORY Patient Outreach (FAMPWS) RADHA PAPPAS ([id number]) 1975 F Date Time Provider Department 08/06/18 KAYY GUZMAN) FAMPWS During your visit today, we recorded the following information about you: Kayy Guzman CMA 08/11/2018 9:22 AM Signed [facility] CARE GAP REGISTRY DOCUMENTATION (OUTSIDE TEAMLET) Provider Action/FYI: PSR Action/FYI: Due for Physical (not seen since 2015) Patient identified by name and date of . Last BP/Labs: Blood Pressure: Last 3 Encounter BP Readings: Date: BP: 09/26/2017 108/60 06/06/2017 128/73 09/24/2016 128/80 Lipids: No results found for: CHOL No results found for: HDL LDL Chol, [place] (mg/dL) Date Value 11/23/2011 97 No results found for: TG HGB A1C: No results found for: HBA1C TSH: TSH (uU/mL) Date Value 11/09/2011 1.810 ) ? Patient has the following care gap registry disease diagnosis:Asthma ? Patient has the following open care gaps: Health Maintenance Due: ANNUAL PCP TEAM CHRONIC DISEASE VISIT due on 10/29/1991 DTAP,TDAP,TD(2 - Tdap) due on 04/28/2014 MAMMOGRAM due on 12/13/2016 INFLUENZA(1) due on 03/29/2018 ? Last office visit: 03/01/2016 ? Future office visit:Physical next available with pcp or signal manager HIRA Youngblood CMA 08/11/2018 9:22 AM Signed [employer] message sent. 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 She will call to schedule when she's able. She stated she was having some pain today on right side rib cage area and wanted to be seen for an appointment. I told her hours and days of open access and she plans to utilize that if needed. Patient identified by name and . Kayy Guzman CMA Allergies As of Date: 08/06/2018 Noted Allergy Reaction ALBUTEROL 02/20/2012 14 - Other: See Comments Comments: causes palpitations and tachycardia AMOXACILLIN (AMOXICILLIN) 09/13/2007 2 - Rash 8 - GI Upset CEFTIN (CEFUROXIME AXETIL) 09/15/2008 8 - GI Upset DOXYCYCLINE 03/18/2012 8 - GI Upset Environmental allergies [Other] 11/10/2008 Comments: Cats, dogs, molds TORADOL (KETOROLAC TROMETHAMINE) 11/03/2011 8 - GI Upset Comments: nausea TRAMADOL 01/29/2012 8 - GI Upset Date Reviewed: 09/26/2017 Reviewed by: Patricia Tate - Fully Assessed Reason for Visit: PHMA/Care Gap Outreach [[id number]] Prescriptions as of 08/06/2018 Sig: PROAIR HFA 90 MCG/ACTUATION A* Inhale 2 (TWO) puffs every FO* FAMOTIDINE 20 MG TABLET Take 20 mg by mouth once bonnie* EPINEPHRINE 0.3 MG/0.3 ML INJ* Inject 0.3 mL intramuscularly* CETIRIZINE 10 MG TABLET Take 1 tablet by mouth once d* * COMPOUNDED PRESCRIPTION Nebulizer for home use. Diagn* * FLUOCINONIDE 0.05 % TOPICAL C* Use as directed * INHALATIONAL SPACING DEVICE M* Use with combivent as directed Problem List As Of Date 08/06/2018 Noted Resolved Unspecified Asthma [J45.909] INVALID FOR*05/09/2009 ALLERGIC RHINITIS NOS [J30.9] INVALID FOR* TOBACCO USE DISORDER [F17.200] INVALID FOR*01/11/2009 Abdominal pain, other specified site [R10.9] INVALID FOR*11/22/2011 Extrinsic asthma [J45.909] INVALID FOR* More... Dysmenorrhea [N94.6] INVALID FOR*11/22/2011 Abdominal pain, right lower quadrant [R10.31] INVALID FOR*02/09/2011 Sprain of neck [S13.9XXA] INVALID FOR*11/22/2011 GERD (gastroesophageal reflux disease) [K21.9] INVALID FOR* More... Encounter Status:Closed by KAYY GUZMAN CMA on 08/11/18 CNCO Observed: 09/27/2017 Status: COMPLETED Source: [place] 12:[address] [facility] REPOSITORY Letter Text Patricia Tate [facility] [address] [place], [place] [address] Radha Pappas [phone] [facility] [id number] 09/27/2017 Dear Radha, This letter is to inform you that the culture(s) you had recently were normal. If you have any questions or further problems or concerns, please feel free to call our office at [phone]. We appreciate your confidence in choosing the [facility] for your medical care and we look forward to seeing you at your next appointment. The [facility] GC/CHLAMYDIA AMPLIF Collected: 09/26/2017 Status: F Source: [place] 12:00 PM [facility] REPOSITORY TYPE CODE TESTS RESULT OUT OF REFERENCE UNITS RANGE LAB GCCTSR GC/Chlam Amp [facility] Source LAB GCAMPL GC Negative Amplification for Neisseria gonorrhoeae by amplification. LAB CLAMPL Chlamydia Negative Amplif for Chlamydia trachomatis by amplification. Performed By: #### GCCT #### [facility] [address] [place], [place] [address] CNOV Observed: 09/26/2017 Status: COMPLETED Source: [place] 11:30 AM [facility] REPOSITORY Office Visit (WOOB) RADHA PAPPAS ([id number]) 1975 F Date Time Provider Department 09/26/17 11:30 AM PATRICIA TATE ([place]) WOOB During your visit today, we recorded the following information about you: Blood pressure Weight Height Last Period 108/60 71.7 kg 1.59 m 09/02/17 PATRICIA TATE CNP 09/26/2017 1:16 PM Signed Account Officer offered: Patient declines. Radha Pappas is a 41 year old who presents for her annual gynecologic exam with complaints, irregular cycle. Is noticing some pain to right ovary especially 2 weeks after menses starts. Had ovarian cyst in 2016 and feels like pain is the same, sometimes ANDquot;doubles her overANDquot;. Treated for UTI 2 weeks ago and still has slight urinary urgency. Menses: cycles every 30-45 days and 3-5 days of flow. Contraception: vasectomy HPV vaccine: No Last Pap: 2016 normal HPV: negative History of abnormal pap: No Last mammogram: 2016normal Sexually active: Yes Patient concerns for STD exposure: Yes: infidelity Time with current partner: 3 years Pain with intercourse: No Postcoital bleeding: No Hot flashes: Yes, 3 days/week Night sweats: Yes, once per night Exercise: on feet at work Diet: tries to eat balanced diet Seatbelt use: Yes Obstetric History T1 L1 SAB0 TAB0 Ectopic0 Multiple0 Live Births1 PAST MEDICAL HISTORY Diagnosis Date - Allergic rhinitis, cause unspecified Allergic rhinitis - Dysmenorrhea - Ovarian cyst - Unspecified asthma(493.90) Asthma Unspecified PAST SURGICAL HISTORY Procedure Laterality Date - NONE FAMILY HISTORY Problem Relation Age of Onset - Adopted: Yes - Cancer Mother 45 Ovarian Ca in mother [survived][ - Diabetes Maternal Grandfather - Diabetes Paternal Grandmother - Diabetes Paternal Grandfather - Heart Maternal Grandmother - Breast Cancer Other Cousin - Breast Cancer Maternal Aunt - Cancer Paternal Aunt Lung Cancer SOCIAL HISTORY Social History Substance Use Topics - Smoking status: Former Smoker Packs/day: 0.25 Years: 10.00 Types: Cigarettes Quit date: 07/29/2008 - Smokeless tobacco: Never Used - Alcohol use No REVIEW OF SYSTEMS Abdomen: See HPI. No abdominal pain, nausea, vomiting, diarrhea, or constipation. No bloating, early satiety, indigestion, or increased flatulence. Bladder: No dysuria, gross hematuria, urinary frequency, urinary urgency, or incontinence. Treated with antibiotic for UTI 2 weeks ago. Breast: No breast lumps, nipple d/c, overlying skin changes, redness or skin retraction. Thinks has eczema to left breast because spot has improved with eczema cream. Allergies and current medication updated:Yes EXAM: BP 108/60 Ht 5' 2.598ANDquot; (1.59m) Wt 158 lb (71.7kg) LMP 09/02/2017 BMI 28.35 kg/(m2). GENERAL: pleasant, female in no apparent distress HEENT: Normocephalic, atraumatic, mucus membranes moist and no lesions NECK: Supple, full range of motion, no adenopathy and thyroid normal DERMATOLOGY: Normal, without lesions, non-icteric and non-hirsute BREAST: soft, non-tender, symmetric, no dominant mass, normal nipple-areolar complex, no lymphadenopathy and no nipple discharge, 1 cm round area of erythema with black comedone to left breast at 12 o'clock CHEST: Normal inspiratory effort ABDOMEN: soft, non-tender and no masses PELVIC: external genitalia normal, normal Bartholin's glands, urethra, [place]'s glands, no vulvar lesions, no cervical lesions, good vaginal support, physiologic discharge present, normal appearing perineal body and perianal region BIMANUAL: uterus normal size, shape and consistency, no adnexal masses and non-tender RECTOVAGINAL: deferred. NEURO: alert and oriented x3,exam grossly non-focal EXTREMITIES: normal ASSESSMENT/PLAN: 1) Health maintenance: Pap/HPV up to date. Mammogram ordered. Nutrition, exercise and routine health maintenance exams reviewed. Calcium/Vitamin D supplementation information provided. 2) Contraception: vasectomy. Contraceptive options reviewed and information provided. 3) STD screening: Accepted STD check for Gonorrhea and Chlamydia, rapid trich negative 4. Chronic RLQ pain - ICD9: 789.03, 338.29, ICD10: R10.31, G89.29 - [place] in 2016 indicated small right ovarian cyst. Pain is the same. Declines diagnostic testing. Encouraged to call office if pain worsens. 5. Urinary urgency - ICD9: 788.63, ICD10: R39.15 - Treated with antibiotic for UTI 2 weeks ago. Has slight urinary urgency - UA DIP B/O - negative 6 Follow up one year or sooner as needed DAVID CHILDERS CNP 09/26/2017 12:09 PM Signed Menopause Symptoms Not all women experiences menopause in the same way. For some, menopause can bring on an array of uncomfortable symptoms. Others may experience few if any discomforts. This information has been prepared to help you manage the most common changes associated with the midlife transition. RELIEVING HOT FLASHES * Identify and avoid your hot flash triggers. Common triggers may include stress, caffeine, alcohol, spicy foods, tight clothing, heat and cigarette smoke. * Keep the bedroom cool. Use fans during the day. Wear light layers of clothes with natural fibers. * Try deep, slow abdominal paced breathing (6 to 8 breaths per minute). Practice deep breathing for 15 minutes in the morning, 15 minutes in the evening and at the onset of hot flashes. * Exercise daily. Walking, swimming, dancing and bicycling with helmet are good choices along with yoga. * Add soy protein in the form of food (40-60 mg) to your diet daily in place of animal protein. Promensil and isoflavone tablets have NOT been shown to significantly help menopausal symptoms * Black cohosh (in the form of Remifemin) can be used for hot flashes and has been approved by [place] [employer] [place] for only 6 months of use, however has NOT been well studied in the [place] for superintendent container terminal effects and THERE HAVE BEEN REPORTS OF LIVER TOXICITY WITH BLACK COHOSH USE. (Avoid kava kava, valerian root and beware that most herbal products are NOT regulated in the [place] and some have been associated with liver toxicity) NOTE: HORMONE THERAPY (HT) is the MOST EFFECTIVE treatment and the only FDA approved treatment for menopausal symptoms. Any form of hormones, including 'bioidentical' hormones have risks as well as benefits. * Antidepressants like Effexor (venlaflaxine) a NSRI or Pristiq (desvenlafaxine) another agent, Neurontin (gabapentin) may help block hot flashes and all have risks and benefits like any prescription or off the shelf medicine. * Use of Bellergal is discouraged as it contains an addictive barbiturate. RELIEVING INSOMNIA * Keep the bedroom cool to prevent night sweats. Special chill pillows that are cool are available. * Avoid using sleeping pills. * Exercise daily but not right before bedtime. * Avoid caffeine and alcohol at night. * Take a warm shower at bedtime. COPING WITH MOOD SWINGS, FEARS AND DEPRESSION * Find a self-calming skill to practice, such as yoga, meditation or slow deep breathing. * Avoid tranquilizers, if possible, however prescription anti- depressants can be very effective. * Engage in a creative outlet that fosters a sense of achievement. * Stay connected with your family and community; nurture your friendships. RELIEVING PAINFUL INTERCOURSE * Try using a vaginal water-based moisturizing lotion 3 times a week (like Replens or SILK-E) or lubricant during intercourse like KY jelly or Astroglide. *Local estrogen treatments for the vagina/bladder are available as a cream, tablet or vaginal ring. HELPFUL WEB SITES www.menopause.org www.[facility].org/[facility] Non-Hormonal Ways to [place] with Hot Flashes and Menopause Hormone therapy is the most effective therapy for hot flashes. It is also the only FDA approved method to treat hot flashes. However, other non-hormonal options are available for women who are suffering from symptoms, but are not yet ready to consider hormone therapy. Some women are not appropriate candidates for hormone therapy, such as those have been recently treated for breast cancer, ovarian cancer, or endometrial/uterine cancer. It is important to remember that when used appropriately, hormone therapy can be a safe and effective option for many women. Here we will review non-hormonal treatment options for women. Knowing the triggers of hot flashes Hot flashes may be precipitated by hot weather, smoking, caffeine, spicy foods, alcohol, tight clothing, heat and stress. Identify and avoid your hot flash ANDquot;triggers.ANDquot; Some women notice hot flashes when they eat a lot of sugar. Exercising in warm temperatures might make hot flashes worse. Diet Avoiding caffeine, spicy foods, and alcohol can help lessen both the number and severity of hot flashes. Many women try to incorporate more plant estrogens into their diet. Plant estrogens, such as isoflavones, are thought to have weak estrogen-like effects that may reduce hot flashes. They may work in the body like a weak form of estrogen. Examples of plant estrogens include: soybeans, chickpeas, lentils, flaxseed, grains, beans, fruits, red clover and vegetables. In general, soybeans, chickpeas, and lentils are considered to have the most powerful plant estrogens, though their effect is much less than that of human estrogen. Try to choose natural foods rather than supplements. Also remember that only crushed or ground forms of flaxseed are likely to help (as compared to the whole seed or seed oil forms). What foods have high amounts of isoflavones Food Isoflavone Amount (Mg) In Food (100g) Soymilk 9.65 Soybeans, green, raw 151.17 Soy flour (textured) 148.61 148.61 Soybeans, dry roasted 128.35 Instant beverage soy, powder, not reconstituted 109.51 Miso soup mix, dry 60.39 Soybean chips 54.16 Tempeh, cooked 53.00 Soybean curd cheese 28.20 Tofu, silken 27.91 Tofu, yogurt 16.30 Source: USDA -- [facility] Database on the Isoflavone Content of Foods, 1998 Lifestyle changes Reducing the temperature in a room, dressing in layers, and the use of a fan while asleep can be effective ways to help deal with troublesome hot flashes. Women who are overweight tend to have more bothersome hot flashes, therefore weight loss can be helpful. Quitting smoking has a dual importance during menopause. First, smoking contributes to the increased cardiovascular risks of being postmenopausal. Second, smokers tend to experience more hot flashes. Women who lead a sedentary life seem to suffer more from hot flashes; however, it is best to exercise in a cooler environment. Try deep, slow abdominal breathing (6 to 8 breaths per minute). Practice deep breathing for 15 minutes in the morning, 15 minutes in the evening and at the onset of hot flashes. For some women, wearing socks to bed is helpful as it can help to cool core body temperature. Relieving insomnia ? Keep the bedroom cool to prevent night sweats. ? Avoid using sleeping pills. ? Exercise daily. ? Avoid caffeine and alcohol at night. ? Take a warm bath or shower at bedtime. ? Try milk products at bedtime or during the night (but avoid products that contain caffeine). ? Coping with mood swings, fears, and depression ? Find a self-calming skill to practice, such as yoga, meditation or slow, deep breathing. ? Avoid tranquilizers, if possible. ? Engage in a creative outlet that fosters a sense of achievement. ? Stay connected with your family and community; nurture your friendships. Relieving painful intercourse Try using a vaginal water-based moisturizing lotion or lubricant during intercourse. These are sold without a prescription near the condoms in most stores. Common names include-Astroglide? and [place] liquid?. Avoid Vaseline?, as it may lead to yeast infections. Are the brtv-pua-pccqhtt herbal products (botanicals) safe? While safe when taken in moderate amounts through diet, the consumption of extraordinary amounts of soy and isoflavone supplements may be harmful to women with a history of estrogen-dependent cancer, like breast cancer, and possibly to other women as well. More research is needed to determine the safety and effectiveness of botanical treatments. For example, Ginseng, Dong Quai, Wild yam, Progesterone cream, reflexology, and magnetic devices are sold to help menopausal symptoms, but there are no good studies looking at their safety or effectiveness. To make an informed decision about the use of these treatments, be sure to discuss them with your doctor. Because little is known about many botanicals, the best way to evaluate their safety and effectiveness is to become an educated consumer. Here are some tips to consider when shopping for alternative therapies. Ask yourself the following questions: ? What is the treatment? ? What does it involve? ? How does it work? ? Why does it work? ? Are there any risks? ? What are the side effects? ? Is it effective? (Ask for evidence or proof) ? How much does it cost? ? Once you answer these questions, discuss the therapy with your doctor. Make sure your doctor knows what therapy you are considering in order to discuss possible interactions or side effects with your current treatment. What are warning signs that a product may not be legitimate? When trying to determine whether or not a product is what it says it is, one of the elements you may want to look at is how the product is promoted. Be cautious of products promoted through: ? Telemarketers ? Direct mailings ? Infomercials ? Ads disguised as valid news articles ? Ads in the back of magazines Additional red flags to look for include: ? Big claims: If products claim to be a ANDquot;cureANDquot; for your condition, or gives outrageous claims, be cautious. ? Source: Be wary if the product is only offered through one livestock slaughterer or purchased only through a health care provider?s office. ? Ingredients: Make sure all of the active ingredients are listed, and don?t trust ANDquot;secret formulas.ANDquot; ? Testimonials: Remember that only people who are satisfied with a product give testimonials and that they may be getting paid for their endorsement References: National Center for Complementary and Alternative Medicine. Vitamin E. nccam.nih.gov Assessed October 27, 2012 Dalila Sands et al. meta-analysis: High Dosage Vitamin E. Supplementation Might Increase All Cause Mortality. Annals of Internal Medicine August 01, 2004. annals.org National Center for Complementary and Alternative Medicine. Menopausal Symptoms and CAM. nccam.nih.gov Accessed October 27, 2012 [place] [employer], Hormone Therapy for women in 2012. www.menopause.org Assessed October 27, 2012 [place] [employer]. Publications. The Menopause Years. www.acog.org Accessed 09/25/2010 Centers for Disease Control and Prevention. Women?s Reproductive Health: Menopause. www.cdc.gov Accessed 09/25/2010 National [place] on Aging. Age Page: Menopause. www.kingsley.nih.gov Accessed 09/25/2010 Referring Provider: SELF [200] Allergies As of Date: 09/26/2017 Noted Allergy Reaction ALBUTEROL 02/20/2012 14 - Other: See Comments Comments: causes palpitations and tachycardia AMOXACILLIN (AMOXICILLIN) 09/13/2007 2 - Rash 8 - GI Upset CEFTIN (CEFUROXIME AXETIL) 09/15/2008 8 - GI Upset DOXYCYCLINE 03/18/2012 8 - GI Upset Environmental allergies [Other] 11/10/2008 Comments: Cats, dogs, molds TORADOL (KETOROLAC TROMETHAMINE) 11/03/2011 8 - GI Upset Comments: nausea TRAMADOL 01/29/2012 8 - GI Upset Date Reviewed: 09/26/2017 Reviewed by: Patricia Tate - Fully Assessed Reason for Visit: Yearly Exam [187] Primary Visit Diagnosis:Encounter for gynecological examination (general) (routine) without abnormal findings [Z01.419] Other Visit Diagnoses:Chronic RLQ pain [R10.31, G89.29] Urinary urgency [R39.15] Visit for screening mammogram [Z12.31] Screen for STD (sexually transmitted disease) [Z11.3] Order(s):UA DIP B/O [[id number]] Order #: [id number] DAWOOD SCREENING [[id number]] Order #: [id number] FUTURE GC/CHLAMYDIA DNA DET [SQGCCAMP] Order #: [id number] RAPID TRICH B/O [[id number]] Order #: [id number] Prescriptions as of 09/26/2017 Sig: EPINEPHRINE 0.3 MG/0.3 ML INJ* Inject 0.3 mL intramuscularly* CETIRIZINE 10 MG TABLET Take 1 tablet by mouth once d* * COMPOUNDED PRESCRIPTION Nebulizer for home use. Diagn* PROAIR HFA 90 MCG/ACTUATION A* Inhale 2 (TWO) puffs every FO* FAMOTIDINE 20 MG TABLET Take 20 mg by mouth once bonnie* * FLUOCINONIDE 0.05 % TOPICAL C* Use as directed * INHALATIONAL SPACING DEVICE M* Use with combivent as directed Problem List As Of Date 09/26/2017 Noted Resolved Unspecified Asthma [J45.909] INVALID FOR*05/09/2009 ALLERGIC RHINITIS NOS [J30.9] INVALID FOR* TOBACCO USE DISORDER [F17.200] INVALID FOR*01/11/2009 Abdominal pain, other specified site [R10.9] INVALID FOR*11/22/2011 Extrinsic asthma [J45.909] INVALID FOR* More... Dysmenorrhea [N94.6] INVALID FOR*11/22/2011 Abdominal pain, right lower quadrant [R10.31] INVALID FOR*02/09/2011 Sprain of neck [S13.9XXA] INVALID FOR*11/22/2011 GERD (gastroesophageal reflux disease) [K21.9] INVALID FOR* More... Other instructions from your clinician: Menopause Symptoms Not all women experiences menopause in the same way. For some, menopause can bring on an array of uncomfortable symptoms. Others may experience few if any discomforts. This information has been prepared to help you manage the most common changes associated with the midlife transition. RELIEVING HOT FLASHES * Identify and avoid your hot flash triggers. Common triggers may include stress, caffeine, alcohol, spicy foods, tight clothing, heat and cigarette smoke. * Keep the bedroom cool. Use fans during the day. Wear light layers of clothes with natural fibers. * Try deep, slow abdominal paced breathing (6 to 8 breaths per minute). Practice deep breathing for 15 minutes in the morning, 15 minutes in the evening and at the onset of hot flashes. * Exercise daily. Walking, swimming, dancing and bicycling with helmet are good choices along with yoga. * Add soy protein in the form of food (40-60 mg) to your diet daily in place of animal protein. Promensil and isoflavone tablets have NOT been shown to significantly help menopausal symptoms * Black cohosh (in the form of Remifemin) can be used for hot flashes and has been approved by [place] [employer] [place] for only 6 months of use, however has NOT been well studied in the [place] for jail effects and THERE HAVE BEEN REPORTS OF LIVER TOXICITY WITH BLACK COHOSH USE. (Avoid kava kava, valerian root and beware that most herbal products are NOT regulated in the [place] and some have been associated with liver toxicity) NOTE: HORMONE THERAPY (HT) is the MOST EFFECTIVE treatment and the only FDA approved treatment for menopausal symptoms. Any form of hormones, including 'bioidentical' hormones have risks as well as benefits. * Antidepressants like Effexor (venlaflaxine) a NSRI or Pristiq (desvenlafaxine) another agent, Neurontin (gabapentin) may help block hot flashes and all have risks and benefits like any prescription or off the shelf medicine. * Use of Bellergal is discouraged as it contains an addictive barbiturate. RELIEVING INSOMNIA * Keep the bedroom cool to prevent night sweats. Special chill pillows that are cool are available. * Avoid using sleeping pills. * Exercise daily but not right before bedtime. * Avoid caffeine and alcohol at night. * Take a warm shower at bedtime. COPING WITH MOOD SWINGS, FEARS AND DEPRESSION * Find a self-calming skill to practice, such as yoga, meditation or slow deep breathing. * Avoid tranquilizers, if possible, however prescription anti-depressants can be very effective. * Engage in a creative outlet that fosters a sense of achievement. * Stay connected with your family and community; nurture your friendships. RELIEVING PAINFUL INTERCOURSE * Try using a vaginal water-based moisturizing lotion 3 times a week (like Replens or SILK-E) or lubricant during intercourse like KY jelly or Astroglide. *Local estrogen treatments for the vagina/bladder are available as a cream, tablet or vaginal ring. HELPFUL WEB SITES www.menopause.org www.[facility].org/[facility] Non-Hormonal Ways to [place] with Hot Flashes and Menopause Hormone therapy is the most effective therapy for hot flashes. It is also the only FDA approved method to treat hot flashes. However, other non-hormonal options are available for women who are suffering from symptoms, but are not yet ready to consider hormone therapy. Some women are not appropriate candidates for hormone therapy, such as those have been recently treated for breast cancer, ovarian cancer, or endometrial/uterine cancer. It is important to remember that when used appropriately, hormone therapy can be a safe and effective option for many women. Here we will review non-hormonal treatment options for women. Knowing the triggers of hot flashes Hot flashes may be precipitated by hot weather, smoking, caffeine, spicy foods, alcohol, tight clothing, heat and stress. Identify and avoid your hot flash triggers. Some women notice hot flashes when they eat a lot of sugar. Exercising in warm temperatures might make hot flashes worse. Diet Avoiding caffeine, spicy foods, and alcohol can help lessen both the number and severity of hot flashes. Many women try to incorporate more plant estrogens into their diet. Plant estrogens, such as isoflavones, are thought to have weak estrogen-like effects that may reduce hot flashes. They may work in the body like a weak form of estrogen. Examples of plant estrogens include: soybeans, chickpeas, lentils, flaxseed, grains, beans, fruits, red clover and vegetables. In general, soybeans, chickpeas, and lentils are considered to have the most powerful plant estrogens, though their effect is much less than that of human estrogen. Try to choose natural foods rather than supplements. Also remember that only crushed or ground forms of flaxseed are likely to help (as compared to the whole seed or seed oil forms). What foods have high amounts of isoflavones Food Isoflavone Amount (Mg) In Food (100g) Soymilk 9.65 Soybeans, green, raw 151.17 Soy flour (textured) 148.61 148.61 Soybeans, dry roasted 128.35 Instant beverage soy, powder, not reconstituted 109.51 Miso soup mix, dry 60.39 Soybean chips 54.16 Tempeh, cooked 53.00 Soybean curd cheese 28.20 Tofu, silken 27.91 Tofu, yogurt 16.30 Source: [facility] -- [facility] Database on the Isoflavone Content of Foods, 1998 Lifestyle changes Reducing the temperature in a room, dressing in layers, and the use of a fan while asleep can be effective ways to help deal with troublesome hot flashes. Women who are overweight tend to have more bothersome hot flashes, therefore weight loss can be helpful. Quitting smoking has a dual importance during menopause. First, smoking contributes to the increased cardiovascular risks of being postmenopausal. Second, smokers tend to experience more hot flashes. Women who lead a sedentary life seem to suffer more from hot flashes; however, it is best to exercise in a cooler environment. Try deep, slow abdominal breathing (6 to 8 breaths per minute). Practice deep breathing for 15 minutes in the morning, 15 minutes in the evening and at the onset of hot flashes. For some women, wearing socks to bed is helpful as it can help to cool core body temperature. Relieving insomnia ? Keep the bedroom cool to prevent night sweats. ? Avoid using sleeping pills. ? Exercise daily. ? Avoid caffeine and alcohol at night. ? Take a warm bath or shower at bedtime. ? Try milk products at bedtime or during the night (but avoid products that contain caffeine). ? Coping with mood swings, fears, and depression ? Find a self-calming skill to practice, such as yoga, meditation or slow, deep breathing. ? Avoid tranquilizers, if possible. ? Engage in a creative outlet that fosters a sense of achievement. ? Stay connected with your family and community; nurture your friendships. Relieving painful intercourse Try using a vaginal water-based moisturizing lotion or lubricant during intercourse. These are sold without a prescription near the condoms in most stores. Common names include-Astroglide? and [place] liquid?. Avoid Vaseline?, as it may lead to yeast infections. Are the uqit-nzr-qzurgji herbal products (botanicals) safe? While safe when taken in moderate amounts through diet, the consumption of extraordinary amounts of soy and isoflavone supplements may be harmful to women with a history of estrogen-dependent cancer, like breast cancer, and possibly to other women as well. More research is needed to determine the safety and effectiveness of botanical treatments. For example, Ginseng, Dong Quai, Wild yam, Progesterone cream, reflexology, and magnetic devices are sold to help menopausal symptoms, but there are no good studies looking at their safety or effectiveness. To make an informed decision about the use of these treatments, be sure to discuss them with your doctor. Because little is known about many botanicals, the best way to evaluate their safety and effectiveness is to become an educated consumer. Here are some tips to consider when shopping for alternative therapies. Ask yourself the following questions: ? What is the treatment? ? What does it involve? ? How does it work? ? Why does it work? ? Are there any risks? ? What are the side effects? ? Is it effective? (Ask for evidence or proof) ? How much does it cost? ? Once you answer these questions, discuss the therapy with your doctor. Make sure your doctor knows what therapy you are considering in order to discuss possible interactions or side effects with your current treatment. What are warning signs that a product may not be legitimate? When trying to determine whether or not a product is what it says it is, one of the elements you may want to look at is how the product is promoted. Be cautious of products promoted through: ? Telemarketers ? Direct mailings ? Infomercials ? Ads disguised as valid news articles ? Ads in the back of magazines Additional red flags to look for include: ? Big claims: If products claim to be a cure for your condition, or gives outrageous claims, be cautious. ? Source: Be wary if the product is only offered through one livestock slaughterer or purchased only through a health care provider?s office. ? Ingredients: Make sure all of the active ingredients are listed, and don?t trust secret formulas. ? Testimonials: Remember that only people who are satisfied with a product give testimonials and that they may be getting paid for their endorsement References: National Center for Complementary and Alternative Medicine. Vitamin E. [facility] waxhaw.nih.gov Assessed October 27, 2012 Dalila Sands et al. meta-analysis: High Dosage Vitamin E. Supplementation Might Increase All Cause Mortality. Annals of Internal Medicine August 01, 2004. annals.org National Center for Complementary and Alternative Medicine. Menopausal Symptoms and CAM. [facility].nih.gov Accessed October 27, 2012 [place] Menopause [employer], Hormone Therapy for women in 2011. www.menopause.org Assessed October 27, 2012 [place] [employer] Obstetricians and Gynecologists. Publications. The Menopause Years. www.acog.org Accessed 09/25/2010 Centers for Disease Control and Prevention. Women?s Reproductive Health: Menopause. www.cdc.gov Accessed 09/25/2010 National [place] on Aging. Age Page: Menopause. www.kingsley.nih.gov Accessed 09/25/2010 Medications Discontinued During This Encounter meloxicam (MOBIC) 15 mg tablet 30 t* 1 12/08/2015 09/26/2017 Route: ORAL Sig: Take 1 tablet by mouth once daily as needed for Pain. Disc: Reason for discontinue is not on file. Disposition: Return in 1 year (on 09/26/2018) for Annual Exam. Follow-up and Disposition History Recorded Encounter Status:Closed by PATRICIA TATE on 09/26/17 PROGRESS Observed: 09/26/2017 Status: COMPLETED Source: [place] 11:27 AM [facility] REPOSITORY O ID: [id number] Author: Patricia Tate Service: (none) Author Type: Nurse Practitioner Type: Progress Notes Filed: 09/26/2017 1:16 PM Note Text: Account Officer offered: Patient declines. Radha Pappas is a 41 year old who presents for her annual gynecologic exam with complaints, irregular cycle. Is noticing some pain to right ovary especially 2 weeks after menses starts. Had ovarian cyst in 2016 and feels like pain is the same, sometimes doubles her over. Treated for UTI 2 weeks ago and still has slight urinary urgency. Menses: cycles every 30-45 days and 3-5 days of flow. Contraception: vasectomy HPV vaccine: No Last Pap: 2016 normal HPV: negative History of abnormal pap: No Last mammogram: 2016normal Sexually active: Yes Patient concerns for STD exposure: Yes: infidelity Time with current partner: 3 years Pain with intercourse: No Postcoital bleeding: No Hot flashes: Yes, 3 days/week Night sweats: Yes, once per night Exercise: on feet at work Diet: tries to eat balanced diet Seatbelt use: Yes Obstetric History T1 L1 SAB0 TAB0 Ectopic0 Multiple0 Live Births1 PAST MEDICAL HISTORY Diagnosis Date - Allergic rhinitis, cause unspecified Allergic rhinitis - Dysmenorrhea - Ovarian cyst - Unspecified asthma(493.90) Asthma Unspecified PAST SURGICAL HISTORY Procedure Laterality Date - NONE FAMILY HISTORY Problem Relation Age of Onset - Adopted: Yes - Cancer Mother 45 Ovarian Ca in mother [survived][ - Diabetes Maternal Grandfather - Diabetes Paternal Grandmother - Diabetes Paternal Grandfather - Heart Maternal Grandmother - Breast Cancer Other Cousin - Breast Cancer Maternal Aunt - Cancer Paternal Aunt Lung Cancer SOCIAL HISTORY Social History Substance Use Topics - Smoking status: Former Smoker Packs/day: 0.25 Years: 10.00 Types: Cigarettes Quit date: 07/29/2008 - Smokeless tobacco: Never Used - Alcohol use No REVIEW OF SYSTEMS Abdomen: See HPI. No abdominal pain, nausea, vomiting, diarrhea, or constipation. No bloating, early satiety, indigestion, or increased flatulence. Bladder: No dysuria, gross hematuria, urinary frequency, urinary urgency, or incontinence. Treated with antibiotic for UTI 2 weeks ago. Breast: No breast lumps, nipple d/c, overlying skin changes, redness or skin retraction. Thinks has eczema to left breast because spot has improved with eczema cream. Allergies and current medication updated:Yes EXAM: BP 108/60 Ht 5' 2.598 (1.59m) Wt 158 lb (71.7kg) LMP 09/02/2017 BMI 28.35 kg/(m2). GENERAL: pleasant, female in no apparent distress HEENT: Normocephalic, atraumatic, mucus membranes moist and no lesions NECK: Supple, full range of motion, no adenopathy and thyroid normal DERMATOLOGY: Normal, without lesions, non-icteric and non-hirsute BREAST: soft, non-tender, symmetric, no dominant mass, normal nipple-areolar complex, no lymphadenopathy and no nipple discharge, 1 cm round area of erythema with black comedone to left breast at 12 o'clock CHEST: Normal inspiratory effort ABDOMEN: soft, non-tender and no masses PELVIC: external genitalia normal, normal Bartholin's glands, urethra, [place]'s glands, no vulvar lesions, no cervical lesions, good vaginal support, physiologic discharge present, normal appearing perineal body and perianal region BIMANUAL: uterus normal size, shape and consistency, no adnexal masses and non-tender RECTOVAGINAL: deferred. NEURO: alert and oriented x3,exam grossly non-focal EXTREMITIES: normal ASSESSMENT/PLAN: 1) Health maintenance: Pap/HPV up to date. Mammogram ordered. Nutrition, exercise and routine health maintenance exams reviewed. Calcium/Vitamin D supplementation information provided. 2) Contraception: vasectomy. Contraceptive options reviewed and information provided. 3) STD screening: Accepted STD check for Gonorrhea and Chlamydia, rapid trich negative 4. Chronic RLQ pain - ICD9: 789.03, 338.29, ICD10: R10.31, G89.29 - [place] in 2016 indicated small right ovarian cyst. Pain is the same. Declines diagnostic testing. Encouraged to call office if pain worsens. 5. Urinary urgency - ICD9: 788.63, ICD10: R39.15 - Treated with antibiotic for UTI 2 weeks ago. Has slight urinary urgency - UA DIP B/O - negative 6 Follow up one year or sooner as needed PATRICIA TATE CNP URGENT CARE VISIT Observed: 09/23/2017 Status: F Source: [place] REPORT 6:38 AM [facility] [place] RE[facility]IT[facility] [address] [place] [address] [address] [place] [address] OFFICE VISIT Date of Service: 09/10/17 MR#: [id number] Acct: [id number] Name: RADHA PAPPAS Rep #: [id number] : 1975 Provider: Johan LANDAVERDE Age/Sex: 41/F Location: [facility] Status: Signed Intake Vital Signs09/10/17 Height 5 ft 3 in 09/10/17 Weight: 159 lb 09/10/17 Body Mass Index (BMI) 28.1 09/10/17 Blood Pressure 116/78 Intake Visit Reasons: BLADDER INFECTION Chief Complaint: I think I have a UTI Dynamiter Required: No Is patient in pain?: No Allergies Penicillins Allergy (Severe, Verified 09/10/17 17:37) Unknown amoxicillin Allergy (Verified 03/04/16 13:55) Rash cefuroxime axetil [From Ceftin] Allergy (Verified 03/04/16 13:55) Rash pantaxaprole Allergy (Uncoded 09/10/17 17:44) rash Medications Multivitamin [Daily Multiple Vitamin] 1 ea PO DAILY 08/13/16 [History Confirmed 09/10/17] Albuterol IH (ProAir) [Proair Hfa (SP)Vent Pts] 2 puff INHALATION Q4H PRN PRN 02/21/17 [History Confirmed 09/10/17] Benzonatate [Tessalon Perle] 100 mg PO BID PRN PRN 02/21/17 [History Confirmed 09/10/17] Cetirizine HCl [Zyrtec] 10 mg PO DAILY #14 tab.rapdis 05/09/17 [Rx Confirmed 09/10/17] Famotidine [Pepcid] 20 mg PO BID #28 tab 05/09/17 [Rx Confirmed 09/10/17] Prednisone [Deltasone] 60 mg PO DAILY #15 tab 05/09/17 [Rx Confirmed 09/10/17] nitrofurantoin monohydrate/macrocrystals 100 mg capsule 1 cap PO Q12H 7 Days #14 cap 09/10/17 [Rx Confirmed 09/10/17] PFSH Social History Smoking Status: Never smoker alcohol intake: never HPI HPI Chief Complaint: I think I have a UTI Details: RADHA PAPPAS, is a 41 F who presents to the office today for urinary burning frequency frequency and hesitancy 2-3 days. She does note a small amount of blood tinge on the toilet tissue when she wipes. Denies any nose any no discharge or external burning. She states when she urinates it is very small amounts than 20 minutes later she has to go again. Patient relates she had her menstrual cycle last week but it is ago. She has a history of kidney 15 years ago but does not recall ever having a UTI before. She denies any external itching, just pain and hesitency with urination. She denies any fever or chills. no abdominal paim nausea or vomiting. ROS Const Constitutional: No body ache, chills, fatigue, fever(s), night sweats, change in appetite, weakness, frequent falls, headache(s) or excessive sweating Eyes Eyes: No visual disturbances, light sensitivity, eye pain or change in vision ENT ENT: No ear pain, ear discharge, hearing loss, dizziness/vertigo, nasal discharge, difficulty swallowing, sore throat, neck pain or headache(s) Resp Respiratory: No cough, chest congestion, hemoptysis, shortness of breath or wheezing Cardio Cardiology: No shortness of breath, irregular heart rhythm, lightheadedness, chest pain at rest, chest pain with exertion, generalized swelling, orthopnea, palpitations or excessive sweating Gastro GI: No difficulty swallowing, abdominal pain, bloating, change in bowel habits, diarrhea, blood in stool, Black,tarry stools, nausea/dyspepsia or vomiting Genitourinary-Female: Positive for urinary hesitancy, suprapubic fullness, painful urination, urinary frequency and urinary urgency; no Vaginal Itching Musc Musculoskeletal: No joint pain, back pain, numbness, tingling or neck pain Skin Skin: Positive for other; no lesions, itching or rash Breast Breast: Positive for other Neuro Neurology: No visual disturbances, numbness, tingling, abnormal speech, confusion, unsteady gait/balance, dizziness, weakness, frequent falls, loss of vision, headache(s) or memory loss Psych Psychiatric: No change in appetite, No confusion, No memory loss, No anxiety, No depression, No panic attacks, No hallucinations, No Thoughts of harming yourself/Others Endo Endocrine: No fatigue, cold intolerance, excessive sweating, flushing, heat intolerance or increased thirst/drinking Aller/Imm Allergy/Immunologic: No wheezing, itchy eyes, food intolerance, seasonal allergy symptoms or hives Ricky/Lymp Hematologic/Lymphatic: No easy bruising Exam Const General: cooperative, no acute distress Orientation: alert, oriented x3 [facility] Head: normal to inspection, normocephalic Ears: hearing grossly normal bilaterally, external ears normal, TM normal on the right, TM normal on the left, no periauricular adenopathy, EAC's normal Nose: nasal mucous membranes and turbinates normal, no nasal discharge Face and sinus: normal facial exam, sinuses nontender Mouth: oral mucosae normal, oropharynx normal, tongue normal Teeth and gingiva: dentition normal, gingiva normal Throat: posterior oropharynx normal Eyes General: appearance normal, both eyes and all related structures Eyelids: eyelids normal Conjunctivae: conjunctivae normal Sclera: sclerae normal EOM: EOM intact bilaterally Neck Neck: normal visual inspection Carotids: no bruits Lymphatic: no lymphadenopathy noted Chest Chest palpation AND inspection: normal inspection of the chest Resp Effort AND Inspection: normal respiratory effort, able to speak in complete sentences, symmetric chest movement, no audible wheezes, no cough, not labored, no respiratory distress Auscultation: Bilateral: Clear to Auscultation Cardio Rate: regular rate Rhythm: regular rhythm Heart Sounds: S1 normal, S2 normal GI Inspection: normal to inspection, no visible pulsation Auscultation: normal bowel sounds, no bruits Palpation: soft, no hepatosplenomegaly, no pulsatile masses, no guarding, no hepatosplenomegaly, tender (minimal pressure on suprapubic pressure) Skin General: no rashes or lesions noted Neuro General: alert, oriented x3, moves all extremities Speech: speech normal Psych Appearance: grossly normal, well kempt Mental Status: mental status grossly normal Assessment AND Plan Problems 1. UTI (urinary tract infection) N39.0 Plan Macrobid 100 mg bid X 10 days Increase fluids Send urine out for C AND S Follow up with PCP if symptoms persist more than 3-5 days. Orders Orders: Medications New: nitrofurantoin monohyd/m-cryst 100 mg administer with a meal/food1 cap PO Q12H 7 days ; swallow whole; do not open, crush, dissolve , or chew Coding Level of Care Code Off vis,est,level 3 Diagnoses UTI (urinary tract infection) N39.0 09/23/17 0638 <Electronically signed by Johan LANDAVERDE> Date Johan LANDAVERDE 09/10/17 1811<Electronically signed by Janet LANDAVERDE> Cosigner Signature: Date (if applicable) Janet Aleman CC: URINALYSIS, COMPLETE Collected: 09/11/2017 Status: F Source: [place] 2:36 PM [facility] REPOSITORY Order Comment: How was Urine Obtained? BINDER STRIPPER HAND TO SPECIFY TYPE CODE TESTS RESULT OUT OF RANGE REFERENCE UNITS LAB L400.3000 Yellow COLOR Normal Yellow LAB L400.3050 Clear Normal CLARITY Cloudy LAB L400.3200 Normal mg/dl Normal GLUCOSE, UR Normal LAB L400.3300 Negative mg/dL Normal BILIRUBIN URINE Negative LAB L400.3400 Negative mg/dl Normal KETONE UR Negative LAB L400.3465 1.002-1.030 Normal SP.GR. DIPSTX 1.010 LAB L400.3550 5.0 - 8.0 pH UR Normal 7.0 LAB L400.3600 Negative mg/dl High PROT 15 DIPSTX LAB L400.3700 Normal mg/dl Normal UROBILI Normal LAB L400.3750 Negative High NITRITE UR Positive LAB L400.3780 Negative /ul Normal OCCULT BLOOD-UR Negative LAB L400.3800 Negative /ul High LEUK 25 ESTERASE LAB L400.4050 0-5 /hpf WBC 0 Normal SEEN LAB L400.4100 0-5 /hpf 0 Normal RBC-UA SEEN LAB L400.4150 5-10 /hpf SQUAM 0 Normal EPI SEEN LAB L400.4300 None Seen /hpf 2+ Normal BACTERIA LAB L400.4350 <or=2+ /hpf 0 Normal MUCUS, URINE SEEN Performed By: #### L400.0001, M100.0650 #### [facility] [address] [place], [address] Observed: 09/11/2017 Status: F Source: [place] CULTURE, URINE 2:36 PM [facility] REPOSITORY Urine Culture ORGANISM 1: Presumptive E. coli Bourg Count >100,000 Presumptive E. coli: REACTION Amoxacillin/Clavulanic Acid $ <=2 S Ampicillin $ <=2 S Ampicillin/Sulbactam $ <=2 S Cefazolin $ <=4 S Cefepime $ <=1 S Ceftriaxone $ <=1 S Ciprofloxacin $ <=0.25 S ESBL - Ertapenim $$$ <=0.5 S Gentamicin $ <=1 S Imipenem *NF <=0.25 S Levofloxacin $ <=0.12 S Nitrofurantoin $ <=16 S Piperacillin/Tazobactam $$ <=4 S Tobramycin $ <=1 S Trimethoprim/Sulfametho $ <=20 S (NF) indicates non-formulary drug at [facility]. Approval by Infectious Disease Specialist required before non-formulary drugs may be ordered and/or dispensed. Performed By: #### L400.0001, M100.0650 #### [facility] [address] [place], [address] ALLERGIES ALLERGIES DATE TYPE / CODE NAME / CODE REACTION SEVERITY SOURCE Drug ketorolac/[id number] Rash Unknown [place] 9 Allergy/368506413( 812(RXNORM) [facility] SNOMED CT) Hospital Repository Drug Penicillins/F0010 Unknown SV [place] 8 Allergy/638076981( 43526(RXNORM) [facility] SNOMED CT) Hospital Repository Miscellaneous pantaxaprole Rash Unknown [place] Allergy/151644723( [facility] SNOMED CT) Hospital Repository Drug cefuroxime Rash Unknown [place] 6 Allergy/810228563( axetil/[id number] [facility] SNOMED CT) (RXNORM) Hospital Repository Drug amoxicillin/F0060 Rash Unknown Advid 6 Allergy/580112414( 52405(RXNORM) [facility] SNOMED CT) Hospital Repository DRUG DOXYCYCLINE GI UPSET [place] 2 INGREDI/123204269( [facility] Main SNOMED [facility]) [place] Repository DRUG ALBUTEROL OTHER: SEE C [place] INGREDI/890300372( Clinic Main SNOMED [facility]) [place] Repository DRUG TRAMADOL GI UPSET [place] INGREDI/642449121( [facility] Main SNOMED CT) [place] Repository DRUG KETOROLAC GI UPSET [place] 2 INGREDI/168421839( TROMETHAMINE Clinic Main SNOMED CT) [place] Repository Miscellaneous OTHER [place] 9 Allergy/922883077( Clinic Main SNOMED [facility]) [place] Repository DRUG CEFUROXIME AXETIL GI UPSET [place] 9 INGREDI/295425559( [facility] Main SNOMED CT) [place] Repository DRUG AMOXICILLIN RASH [place] 8 INGREDI/403817320( [facility] Main SNOMED CT) [place] Repository ENCOUNTERS ENCOUNTERS ADMIT/DISCHARGE ACCOUNT ADMITTING ENCOUNTER LOCATION SOURCE NUMBER CLASS 08/15/2018/08/18/19 [id number] Ambulatory [place] [facility] Repository 08/14/2018/08/14/19 [id number] Emergency [address] ing:ED Repository 09/26/2017/10/01/19 [id number] Ambulatory [place] [facility] Repository 09/10/2017/09/10/19 [id number] Ambulatory BMS[facility]:B [address] Repository 09/10/2017 [id number] Ambulatory [facility] ing:LABSPEC Repository PAYERS PAYERS ENCOUNTER GUARANTOR PAYER SUBSCRIBER SOURCE 08/14/2018 RADHA D Primary RADHA D [place] [id number] Insurance:ANTHEMPolic BOWYERDOB: [facility] [place] y [place]: [id number] [id number] Repository [address]Onm: 330) Date:7623-56-51MR [phone] () [id number], [place] [address]CH: 08/14/2018 Secondary NOT GIVENUNK [place] Insurance:SELF PAY [facility] Number: Effective Repository Date:2018-08-14 09/10/2017 RADHA D Primary RADHA D [place] [id number] Insurance:ANTHEMPolic BOWYERDOB: [facility] [place]: [id number] [id number] Repository [address]Wjq: (330) Date:4271-49-87ES [phone] () [id number], [place] [address]PK: 09/10/2017 Secondary NOT GIVENUNK [place] Insurance:SELF PAY [facility] Number: Effective Repository Date:2017-09-10 09/10/2017 RADHA D Primary RADHA D [place] [id number] Insurance:ANTHEMPolic BOWYERDOB: [facility] [place] y Number: [id number] [id number] Repository [address]Ddu: (330) Date:0764-24-70EA [phone] () [id number], [place] [address]JZ: 09/10/2017 Secondary NOT GIVENUNK [place] Insurance:SELF PAY [facility] Number: Effective Repository Date:2017-09-10
== END 2018-08-14 05:09 | disposition home or self-care (01) ==
PROVIDERS: Emergency Provider Emergency Medicine; Family Provider Family Medicine; PCP Family Medicine
DX: R09.1 Pleurisy (principal); J45.909 Unspecified asthma, uncomplicated
CPT/HCPCS: 71046; 71275; 80048; 80076; 83690; 84484; 85025; 85379; 93005; 96374; 96375; 99285; Q9967; A4216; J2405

== ENCOUNTER 2020-12-16 17:08 | Emergency (ER) | payer OTHER, SELFPAY ==
[2020-12-16 17:09] VITALS: BP 147/87; PULSE 106; RESP 17; TEMP 36.6; O2SAT 99; BMI 26.5
[2020-12-16 17:27] VITALS: BP 147/87; PULSE 106; RESP 17; TEMP 36.6; O2SAT 99
[2020-12-16 17:29] VITALS: O2SAT 98
--- NOTE | 2020-12-16 17:50 | ED.VIS.DYS ---
HPI History of Present Illness Chief Complaint: Shortness of Breath Narrative Narrative: 45-year-old female presenting with shortness of breath. She states she feels like she has been wheezing for the last 2 hours. She was seen in [place] 4 days ago and tested for Covid with what sounds like a PCR as it was a 3-hour turnaround. She states this was negative. She was discharged home with prednisone 60 mg p.o. daily, erythromycin, albuterol inhaler. Patient is an every day smoker and states she has a history of bronchitis. She states she had a chest x-ray which was normal there. Patient has not had any fever, chills, myalgias, loss of taste or smell. She states that she was wheezing on arrival to the ED and use her albuterol inhaler prior to my exam. PFSH PFSH Medical History Asthma Smoker Home Medications albuterol sulfate 2 puff INHALATION Q4H PRN PRN 02/21/17 [History Last Taken Unknown] azithromycin 250 mg PO DAILY 12/16/20 [History Last Taken Unknown] prednisone 60 mg PO DAILY 12/16/20 [History Last Taken Unknown] Allergy/AdvReac Type Severity Reaction Status Date / Time Penicillins Allergy Severe Unknown Verified 09/10/17 17:37 amoxicillin Allergy Rash Verified 03/04/16 13:55 cefuroxime axetil Allergy Rash Verified 03/04/16 13:55 [From Ceftin] ketorolac [From Toradol] Allergy Rash Verified 08/14/18 03:16 pantaxaprole Allergy rash Uncoded 09/10/17 17:44 Social History Smoking Status: Current every day smoker alcohol intake: never ROS ROS ED Constitutional Constitutional ED: Denies chills, fever(s) or sweats Eyes Eyes: Denies blurry vision or change in vision ENT ENT ED: Denies ear pain, rhinorrhea or sore throat Cardiovascular Cardiovascular: Denies chest pain, palpitations or racing heartbeat Respiratory/Chest Respiratory/Chest: Reports cough and dyspnea; Denies sputum Gastrointestinal Gastrointestinal: Denies abdominal pain, constipation, diarrhea or vomiting Genitourinary Genitourinary ED: Denies dysuria, hematuria or urinary frequency Musculoskeletal Musculoskeletal: Denies arthralgias, myalgias or neck pain Integumentary Denies abscess, Abrasions or rash Neurologic Neurologic: Denies headache(s), paresthesias or weakness Psychiatric Psychiatric: Denies anxiety, depression, suicidal ideation or suicidal thoughts Endocrine Endocrinology: Denies polydipsia or polyuria EXAM Physical Exam Const Vital Signs: 12/16/20 17:09 12/16/20 17:27 12/16/20 17:29 Temperature 97.9 F 97.9 F Temperature Source Temporal Temporal Pulse Rate 106 H 106 H Respiratory Rate 17 17 Respiratory Effort Non-Labored Respiratory Depth Respiratory Pattern Normal Blood Pressure 147/87 H 147/87 H Blood Pressure Mean 107 107 Pulse Ox 99 99 Oxygen Delivery Method Room Air Room Air Nasal Cannula 12/16/20 18:25 12/16/20 19:53 Temperature Temperature Source Pulse Rate 101 H 91 Respiratory Rate 22 H 16 Respiratory Effort Short of Breath Respiratory Depth Normal Respiratory Pattern Tachypnea Blood Pressure 109/65 Blood Pressure Mean 79 Pulse Ox 98 Oxygen Delivery Method Room Air General Appearance ED: Negative for pallor HEENT Reports normocephalic, head/scalp atraumatic and moist mucous membranes atraumatic Eyes PERRL and EOMs intact bilaterally Chest Wall inspection of chest normal and palpation of chest normal Resp normal respiratory effort and clear to auscultation bilaterally Auscultation: Negative for rales, rhonchi or wheezes Cardio regular rhythm Rate: tachycardic GI normal to inspection, nondistended, normoactive bowel sounds and non-distended Auscultation: normoactive bowel sounds Palpation: soft Narrative: Deferred Back/Spine no CVA tenderness General Back: Negative for CVA tenderness Cervical Spine: Negative for cervical spine tenderness Extremity normal to inspection General Extremety ED: Yes edema and tenderness General Extremity: edema Neuro oriented x3 and CN's II-XII intact bilaterally Sensorium / Orientation: alert Motor Exam: strength 5/5 throughout Psych mental status grossly normal Attitude: No agitated Skin no rashes or lesions noted and no wounds General Skin Exam: Negative for jaundice or pallor MDM MDM MDM Narrative Medical decision making narrative: Patient presenting with cough and concern for wheezing. She used her albuterol inhaler prior to my auscultation and I do not hear any wheezing. She is currently on antibiotics, prednisone, albuterol inhaler. She is slightly tachycardic but given that she use her albuterol inhaler and her heart rates only 106 this is not too concerning. Her other vital signs are stable. She is not giving me any signs or symptoms of COVID-19. Chest x-ray shows no acute cardiopulmonary process as interpreted by myself and radiology does agree. Patient did call me back to the room as she had an episode of wheezing and she was wheezing. I did treat her with prednisone and give her some breathing treatments and on reevaluation she felt improved. Patient was counseled to discontinue smoking at home as this will only lengthen her course of her current illness. She currently has antibiotics and steroids at home. She is counseled to follow-up with her primary care physician or return for new or worsening symptoms. Impression: 1. Bronchitis with wheezing Radiography Diagnostic Testing: Radiology Impression Chest X-Ray 12/16/20 18:04 IMPRESSION: No acute disease. Electronically Signed: Tenisha Salas MD at 18:22 EDT Tel , Service support , Discharge Plan Triage Chief Complaint: Shortness of Breath ED Provider: Mulugeta Ramirez Dx/Rx/DC Orders Instructions: ED Bronchitis with Wheezing (Adult) Prescriptions: No Action albuterol sulfate 1 PUFF inhaler 2 puff INHALATION Q4H PRN PRN (Reason: Sob &/Or Wheezing) RF: 0 azithromycin 250 mg tablet 250 mg PO DAILY RF: 0 prednisone 20 mg tablet 60 mg PO DAILY RF: 0 Primary Care Provider: Trey Villalobos Referrals: Trey Villalobos MD [Primary Care Provider] - Disposition Disposition: Home, self care
--- NOTE | 2020-12-16 18:04 | RAD_ITS ---
STUDY: X-RAY CHEST REASON FOR EXAM: Female, 45 years old. cough TECHNIQUE: Frontal and lateral views of the chest COMPARISON: 14 August 2018 FINDINGS: The lungs are clear and expanded. There is atelectasis on the frontal view. There is no demonstrated pleural abnormality. Normal size heart. Normal mediastinum and john. Normal visualized pulmonary arteries. Normal visualized aortic arch and descending thoracic aorta. Normal visualized thoracic spine. Normal visualized ribs, clavicles, and shoulders. There is no demonstrated abnormality of the visualized soft tissue structures of the upper abdomen. RAD/Chest PA and Lateral IMPRESSION: No acute disease. Electronically Signed: Tenisha Salas MD at 18:22 EDT Tel , Service support ,
[2020-12-16 18:25] VITALS: PULSE 101; RESP 18; RESP 22; O2SAT 98
[2020-12-16] MEDS: Albuterol 2.5 MG/3 ML VIAL.NEB. INHALATION (18:25)
[2020-12-16] MEDS: Ipratropium/Albuterol Sulfate 3 ML AMPUL.NEB INHALATION (18:25)
[2020-12-16] MEDS: predniSONE 20 MG Tablet 60 MG PO (18:46)
--- NOTE | 2020-12-16 19:23 | CPS ---
x1 Albuterol given to pt. in ER as well
[2020-12-16 19:53] VITALS: BP 109/65; PULSE 91; RESP 16
== END 2020-12-16 19:59 | disposition home or self-care (01) ==
PROVIDERS: Emergency Provider Student in an Organized Health Care Education/Training Program; PCP Family Medicine
DX: J40 Bronchitis, not specified as acute or chronic (principal); F17.200 Nicotine dependence, unspecified, uncomplicated; Z79.52 Long term (current) use of systemic steroids; Z79.1 Long term (current) use of non-steroidal anti-inflammatories (NSAID)
CPT/HCPCS: 71046; 94640; 99251; 99282; G0463

== ENCOUNTER 2022-11-23 07:20 | Day surgery (SDC) | payer OTHER, SELFPAY ==
[2022-11-19 09:09] LABS: Hematocrit 44.2 % (37-47); Hemoglobin 14.3 g/dL (12.0-15.0); Mean Corp Hgb Conc 32.4 g/dL (32-36); Mean Corpuscular Hgb 31.9 pg (27.0-32.0); Mean Corpuscular Volume 98.7 fL (81-99); Mean Platelet Vol. 10.9 fl (6.2-12.0); Platelet Count 297 K/mm3 (150-450); RBC Distribution Width CV 13.1 % (11.6-14.6); RBC Distribution Width SD 47.6 fl (35.1-43.9); Red Blood Count 4.48 M/mm3 (4.2-5.4); White Blood Count 11.4 K/mm3 (4.4-11.0)
--- NOTE | 2022-11-19 16:54 | HP.PCM_ITS ---
History and Physical Date of Admission: 11/23/22 Pre-Op History and Physical ? HPI: The patient is a 47 year old female presenting for pre-operative visit. She is scheduled for hysteroscopy endometrial ablation-Dyan, for AUB on To be scheduled- November 2022. Procedure discussed along with risks, benefits and complications. Other alternatives discussed for management. Consent form signed? Yes. ? ? PAST MEDICAL HISTORY PAST MEDICAL HISTORY Diagnosis Date ? Allergic rhinitis, cause unspecified ? ? Allergic rhinitis ? Dysmenorrhea ? ? Ovarian cyst ? ? Unspecified asthma(493.90) ? ? Asthma Unspecified ? ? PAST SURGICAL HISTORY PAST SURGICAL HISTORY Procedure Laterality Date ? EXTRACTION, ERUPTED TOOTH OR EXPOSED ROOT (ELEVATION AND/OR FORCEPS REMOVAL) ? ? ? NONE ? CURRENT MEDICATIONS Current Outpatient Medications Medication Sig Dispense Refill ? norethindrone (AYGESTIN) 5 mg tablet Take 1 tab PO TID until bleeding stops then take 1 tab BID until surgery 60 tablet 0 ? PROAIR HFA 90 mcg/actuation inhaler Inhale 2 Puffs as instructed every 6 hours as needed. 1 Each 5 ? oxybutynin XL (DITROPAN XL) 5 mg 24 hr tablet Take 1 tablet by mouth once daily. 30 tablet 2 ? OMEPRAZOLE ORAL Take by mouth. ? ? ? fexofenadine (MAUREEN ALLERGY) 180 mg tablet Take 1 tablet by mouth once daily. 30 tablet 11 ? 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 1 Each 1 ? COMPOUNDED PRESCRIPTION Nebulizer for home use. Diagnosis: asthma exacerbation 1 Each 0 ? No current facility-administered medications for this visit. ? ? ALLERGIES: Albuterol, Amoxacillin [Amoxicillin], Ceftin [Cefuroxime Axetil], Doxycycline, Environmental Allergies [Other], Toradol [Ketorolac Tromethamine], and Tramadol ? PERSONAL HISTORY: SOCIAL HISTORY Social History ? Tobacco Use ? Smoking status: Former ? ? Packs/day: 0.25 ? ? Years: 10.00 ? ? Pack years: 2.50 ? ? Types: Cigarettes ? ? Quit date: 07/29/2008 ? ? Years since quittin.2 ? Smokeless tobacco: Never Vaping Use ? Vaping Use: Never used Substance Use Topics ? Alcohol use: No ? Drug use: No ? FAMILY HISTORY: FAMILY HISTORY FAMILY HISTORY Adopted: Yes Problem Relation Age of Onset ? Cancer Mother 45 ? Ovarian Ca in mother [survived] ? Diabetes Maternal Grandfather ? ? Diabetes Paternal Grandmother ? ? Diabetes Paternal Grandfather ? ? Heart Maternal Grandmother ? ? Breast Cancer Other ? ? Cousin ? Breast Cancer Maternal Aunt ? ? Cancer Paternal Aunt ? ? Lung Cancer ? ? REVIEW OF SYMPTOMS: negative except as noted above PHYSICAL EXAMINATION: ? VITALS: Blood pressure 120/72, weight 166 lb (75.3 kg), last menstrual period 10/31/2022. ? GENERAL: The patient is well nourished, well hydrated in no acute distress. , The patient is oriented to time, place, and person. NECK: full range of motion ? ? IMPRESSION: 47-year-old female with abnormal uterine bleeding, benign endometrial biopsy. ? PLAN: Hysteroscopy, endometrial ablation-Dyan ? Pt has been counseled on risks/benefits and alternatives of surgery including but not limited to anesthesia, bleeding, infection, uterine perforation with subsequent injury to pelvic structures including bowel, bladder, ureters and vessels. Pt wishes to proceed with surgery at this time. ? Pre and post op instructions reviewed ? I have reviewed and updated past medical and surgical history, medications and allergies Mary Ann Teran MD Office Visit on 11/06/2022 Office Visit on 11/06/2022 Note viewed by patient
[2022-11-23] VITALS (8 sets, daily range): BP systolic 109–128; BP diastolic 64–72; PULSE 77–106; RESP 16–20; TEMP 36.7–37.4; O2SAT 96–100; BMI 29.7
[2022-11-23 07:46] LABS: Internal QC Validated? YES +Cl - CLEAR BKGD; Pregnancy, Urine Negative Negative
[2022-11-23] MEDS: Lactated Ringers 1,000 ML 15 ML IV (07:56)
--- NOTE | 2022-11-23 08:38 | DCINST_ITS ---
Discharge Instructions Procedure D&C Diet Discharge Diet: No restrictions Activity May resume sexual activity in: 1 week Dressing / Incision Call your doctor if you observe: Fever of 101 or Higher, Inability to urinate, Using more than 1 pad per hour and Uncontrolled pain Follow Up Care Please Follow Up With: Mary Ann Alvarez MD When: 1-2 weeks post OP if you need an appointment please call [phone] Test Results: Test results from this visit will be discussed in further detail at your follow- up appointment, if applicable. Discharge Plan Admission Attending Provider: Mary Ann Alvarez Primary Care Provider: Trey Villalobos Discharge Orders/Prescriptions Prescriptions: No Action albuterol sulfate 1 PUFF inhaler 2 puff INHALATION Q4H PRN PRN (Reason: Sob &/Or Wheezing) oxybutynin chloride 5 mg tablet extended release 24hr 5 mg PO DAILY Label Comments: TAKE 1 TABLET BY MOUTH ONCE DAILY omeprazole 20 mg Capsule,Delayed Release(Dr/Ec) 20 mg PO DAILY norethindrone acetate 5 mg tablet 5 mg PO BID Label Comments: TAKE 1 TABLET BY MOUTH THREE TIMES DAILY UNTIL BLEEDING STOPS, THEN TAKE 1 TABLET BY MOUTH TWICE DAILY FOR 2 DAYS, THEN ONCE DAILY UNTIL GONE Referrals / Follow Up: Trey Villalobos MD [Primary Care Provider] - Disposition Disposition (needs filled in before D/C Order can be placed): Home, Self Care
--- NOTE | 2022-11-23 08:38 | PCM.OPRPT ---
Report of Operation Date of Procedure: 11/23/22 Pre-Operative Diagnosis: AUB Post-Operative Diagnosis: Same Surgery/Procedure Performed:: Hysteroscopy, Dyan Endometrial Ablation Description of Surgical Findings:: Normal Endometrium, Bilateral tubal ostia visualize. Prior to procedure in office EMB was performed- showed proliferative endometrium. 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 Bladder was drained prior to the start of the procedure. At this time the weighted speculum was placed the posterior fornix of the vagina then a single-tooth tenaculum was used to grasp the anterior lip of the cervix. At this time the uterus was sounded to approximately 8.5 cm the endocervical canal sounded to 4cm. Next cervix was dilated in incremental fashion. Once adequate dilatation was achieved the hysteroscope was inserted using normal saline as distention medium. On hysteroscopy no abnormalities appreciated. Both tubal ostia were visualized. At this time the Dyan device was opened. The Dyan was set at 4.5cm. The device was activated. Prior to activation the field test was performed and cavity was intact. The device was then fired and activated for 120 seconds. Once the 120 seconds was completed the device was removed intact and the tenaculum was removed. Good hemostasis was appreciated. Weighted speculum was removed. Vaginal sweep was performed is negative. There were no complications. Anticipated normal postoperative course for this patient. Instrument and lap count were correct ?2. vaginal sweep negative. Grafts/Implants Used: none Procedure Start Time: 08:50 Procedure Stop Time: 08:57 Complications none Admit VTE Documentation VTE Present on Admission: Yes VTE Mechan Device Prophylaxis: SCD's VTE Pharm Prophylaxis ordered?: No Reason prophylaxis not ordered:: Procedure Not Indicated
== END 2022-11-23 10:18 | disposition home or self-care (01) ==
LOC: SDC 07:21 → AC 07:21
PROVIDERS: Anesthesiology; PCP Family Medicine; Referring Provider Obstetrics & Gynecology; Visit Provider Obstetrics & Gynecology
PROC: 0U5B8ZZ Destruction of Endometrium, Via Natural or Artificial Opening Endoscopic (ICD-10-PCS; CPT 58558; principal; 2022-11-23 08:25)
DX: N93.9 Abnormal uterine and vaginal bleeding, unspecified (principal); F17.210 Nicotine dependence, cigarettes, uncomplicated; J45.909 Unspecified asthma, uncomplicated; N32.9 Bladder disorder, unspecified; K21.9 Gastro-esophageal reflux disease without esophagitis; Z97.3 Presence of spectacles and contact lenses; Z87.891 Personal history of nicotine dependence
CPT/HCPCS: 58563; 36415; 81025; 85027; J7120; J2405

== ENCOUNTER 2024-06-29 21:13 | Emergency (ER) | payer SELFPAY ==
[2024-06-29 21:14] VITALS: BP 155/82; PULSE 101; RESP 20; TEMP 36; O2SAT 99; BMI 29.9
[2024-06-29] MEDS: HYDROcodone Bitartrate/Apap 5/325 Tablet PO (21:31)
--- NOTE | 2024-06-29 21:35 | RAD_ITS ---
STUDY: X-RAY - LEFT CLAVICLE REASON FOR EXAM: Female, 48 years old. Injury/Pain HX LT CLAVICLE ORIF 04/2024. HAD ARM PULLED BY DOOR X 2 DAYS AGO, NOW PAIN AND LUMP LEFT CLAVICLE TECHNIQUE: 3 view(s) of the clavicle. COMPARISON: No relevant prior comparison study available FINDINGS: BONES: Metallic plate and screws transfixing comminuted mid/distal clavicle fracture. Alignment is anatomic. No acute fracture demonstrated. JOINTS: No dislocation. SOFT TISSUES: Unremarkable. RAD/Clavicle IMPRESSION: ORIF left clavicle fracture. No acute fracture or significant displacement.. Electronically Signed: Bonita Argueta MD at 22:10 EST ,
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
[2024-06-29 23:44] VITALS: BP 145/79; PULSE 74; RESP 16; TEMP 36.8; O2SAT 100
== END 2024-06-29 23:44 | disposition home or self-care (01) ==
PROVIDERS: Emergency Provider Emergency Medicine; Visit Provider Emergency Medicine
DX: M25.512 Pain in left shoulder (principal); F17.210 Nicotine dependence, cigarettes, uncomplicated; J45.909 Unspecified asthma, uncomplicated; K21.9 Gastro-esophageal reflux disease without esophagitis
CPT/HCPCS: 73000; 99283; A4216

== ENCOUNTER → 2024-10-26 | Outpatient (CLI) | payer MEDICAID, SELFPAY ==
[2024-10-26 15:32] LABS: Absolute Lymphocyte Count 2.04 X10^3/uL (0.83-4.51); Absolute Neutrophil Count 11.4 X10^3/uL (2.0-7.7); Basophil# 0.06 X10^3/uL; Basophil% 0.4 % (0-1); Eosinophil# 0.18 X10^3/uL; Eosinophils% 1.2 % (0-5); Hematocrit 40.2 % (37-47); Hemoglobin 13.4 g/dL (12.0-15.0); Lymphocyte # 2.04 X10^3/ul (0.83-4.51); Lymphocyte % 14.1 % (19-41); Mean Corp Hgb Conc 33.3 g/dL (32-36); Mean Corpuscular Hgb 31.5 pg (27.0-32.0); Mean Corpuscular Volume 94.6 fL (81-99); Monocyte# 0.78 X10^3/uL; Monocyte% 5.4 % (0-10); NRBC Flagged by Analyzer 0 % (0-5); Neutrophil # 11.36 X10^3/uL (2.7-7.7); Neutrophil % 78.3 % (47-70); Platelet Count 275 K/mm3 (150-450); RBC Distribution Width CV 12.5 % (11.6-14.6); RBC Distribution Width SD 43.3 fl (35.1-43.9); Red Blood Count 4.25 M/mm3 (4.2-5.4); White Blood Count 14.5 K/mm3 (4.4-11.0)
[2024-10-26 16:00] LABS: Cholesterol 206 mg/dL (<=200); High Density Lipoprotein 52 mg/dL; Low Density Lipoprotein Calc. 135 mg/dL; Triglycerides 93 mg/dL; Very Low Density Lipoprotein 19 mg/dL (5-40); Vitamin D,25 Hydroxy 8.8 ng/mL (30-100); cholesterol:hdl ratio screen 3.93
[2024-10-26 16:11] LABS: ALB/GLOB Ratio 1.4 RATIO (0.9-2.4); AST(SGOT) 21 U/L (<=31); Alanine Aminotransfer ALT/SGPT 12 U/L (<=34); Albumin, Serum 3.9 g/dL (3.5-5.0); Alkaline Phosphatase 108 U/L (35-104); Anion Gap 9 (5-15); BUN 9 mg/dL (4-19); BUN/Creat Ratio 14.4 RATIO (10-20); Carbon Dioxide 26.1 mmol/L (21.0-32.0); Chloride 106 mmol/L (98-108); Creatinine, Serum 0.61 mg/dL (0.70-1.20); EST Glomerular Filtration Rate 109 (>60); Globulin 2.8 g/dL (2.2-4.2); Glucose 87 mg/dL (70-99); Potassium 4.3 mmol/L (3.3-5.1); Protein, Total 6.7 g/dL (5.9-8.4); Sodium Level 141 mmol/L (133-145); Total Bilirubin 0.34 mg/dL (0.00-1.30)
== END | disposition home or self-care (01) ==
LOC: MTLAB 11:18
PROVIDERS: PCP Family Medicine; Referring Provider Family Medicine; Visit Provider Family Medicine
DX: R25.1 Tremor, unspecified (principal); Z13.220 Encounter for screening for lipoid disorders; K21.9 Gastro-esophageal reflux disease without esophagitis
CPT/HCPCS: 80053; 80061; 82306; 84443; 85025

== ENCOUNTER 2024-12-05 13:33 | Emergency (ER) | payer MEDICAID, SELFPAY ==
[2024-12-05 13:33] VITALS: BP 147/90; PULSE 118; RESP 20; TEMP 36.9; O2SAT 97; BMI 29.2
--- NOTE | 2024-12-05 13:45 | RAD_ITS ---
EXAM: XR Chest, 2 Views CLINICAL INDICATION: COUGH TECHNIQUE: Frontal and lateral views of the chest. COMPARISON: No relevant prior studies available. FINDINGS: LUNGS AND PLEURAL SPACES: Unremarkable. No consolidation. No pneumothorax. HEART: Unremarkable. No cardiomegaly. MEDIASTINUM: Unremarkable. Normal mediastinal contour. BONES/JOINTS: Unremarkable. No acute fracture. RAD/Chest PA and Lateral IMPRESSION: No acute cardiopulmonary process. Reading Location: [id number]
--- NOTE | 2024-12-05 13:46 | EDS_ITS ---
HPI <SAIMA Lu - Last Filed: 12/05/24 15:21> History of Present Illness Chief Complaint: Shortness of Breath Narrative Narrative: 49-year-old female presents with 2 weeks of congestion, productive cough, wheezing and shortness of breath that is worse with activity. She usually smokes 1/2 PPD but quit 2 weeks ago. She uses albuterol inhaler as needed. She was seen at urgent care a week ago and prescribed prednisone 40 mg x 5 days and Tessalon Perles and states she felt somewhat better while on the steroids but after finishing them felt worse. She went back to urgent care 4 days ago and had a negative chest x-ray and was prescribed azithromycin 500 mg x 3 days which she completed. She presents due to ongoing symptoms. She has no fever or chills. No chest pain or hemoptysis. No GI symptoms. [facility] <SAIMA Lu - Last Filed: 12/05/24 15:21> [facility] Medical History (Updated 12/05/24 @ 14:[address] Malcolm Erwin MD) Wears contact lenses Wears glasses Bladder disease Gastric reflux Smoker Asthma Home Medications ?Medication ?Instructions ?Recorded ?Last Taken ?Type albuterol sulfate 90 mcg/actuation 2 puff inhalation Q 4H PRN PRN Sob 02/21/17 Unknown History aerosol inhaler &/Or Wheezing norethindrone acetate 5 mg tablet 5 mg PO BID 11/16/22 Unknown History ergocalciferol (vitamin D2) 1,250 1,250 mcg PO QWEEK 0 12/05/24 Unknown History mcg (50,000 unit) capsule loratadine 10 mg tablet 10 mg PO DAILY 12/05/24 Unkn own History omeprazole 40 mg capsule,delayed 40 mg PO DAILY Unknown History release prednisone 10 mg tablet 10 mg PO UD #30 tabs 5 Unknown Rx Allergy/AdvReac Type Severity Reaction Status Date / Time Penicillins Allergy Severe Unknown Verified 06/29/24 21:16 amoxicillin Allergy Rash Verified 06/29/24 21:16 cefuroxime axetil (From Allergy Rash Verified 06/29/24 21:16 Ceftin) ketorolac (From Toradol) Allergy Rash Verified 06/29/24 21:16 pantoprazole Allergy Rash Verified 06/29/24 21:16 Surgical History S/P ORIF (open reduction internal fixation) fracture Social History Smoking Status: Current every day smoker tobacco type: cigarettes alcohol intake: never ROS <SAIMA Lu - Last Filed: 12/05/24 15:21> ROS ED ROS Narrative Constitutional: Negative for fever, chills. CVS: Negative for palpitations, chest pain, syncope. Respiratory: Positive for shortness of breath, cough. GI: Negative for abdominal pain, nausea, vomiting, diarrhea. EXAM <SAIMA Lu - Last Filed: 12/05/24 15:21> Physical Exam Narrative Exam Narrative: CONST: Patient sitting in no acute distress. EYES: Normal inspection. NECK: Normal inspection. RESP: Frequent dry cough during conversation, faint expiratory wheeze in both bases. No conversational dyspnea or retractions. CVS: Regular rate and rhythm, no murmur, no gallop. SKIN: Color normal, no rash, warm, dry, intact. EXTREMITIES: Normal appearance, no pedal edema. NEURO: Alert and answering questions appropriately. PSYCH: Normal affect. Const Vital Signs: 12/05/24 13:33 12/05/24 13:49 12/05/24 13:55 Temperature 98.5 F Temperature Source Oral Pulse Rate 118 H 111 H Respiratory Rate 20 H 17 Respiratory Effort Short of Breath Respiratory Pattern Normal Blood Pressure 147/90 H Blood Pressure Mean 109 Pulse Ox 97 Oxygen Delivery Method Room Air Room Air 12/05/24 15:01 Temperature 97.8 F Temperature Source Pulse Rate 111 H Respiratory Rate 17 Respiratory Effort Respiratory Pattern Blood Pressure 127/71 H Blood Pressure Mean 89 Pulse Ox 97 Oxygen Delivery Method <Dr. Malcolm Erwin MD - Last Filed: 12/05/24 14:46> Physical Exam Const Vital Signs: 12/05/24 13:33 12/05/24 13:49 12/05/24 13:55 Temperature 98.5 F Temperature Source Oral Pulse Rate 118 H 111 H Respiratory Rate 20 H 17 Respiratory Effort Short of Breath Respiratory Pattern Normal Blood Pressure 147/90 H Blood Pressure Mean 109 Pulse Ox 97 Oxygen Delivery Method Room Air Room Air 12/05/24 15:01 Temperature 97.8 F Temperature Source Pulse Rate 111 H Respiratory Rate 17 Respiratory Effort Respiratory Pattern Blood Pressure 127/71 H Blood Pressure Mean 89 Pulse Ox 97 Oxygen Delivery Method [facility] <SAIMA Lu - Last Filed: 12/05/24 15:21> [facility] Narrative Medical decision making narrative: Differential includes but not limited to viral illness, bronchitis, pneumonia, asthma exacerbation 49-year-old female with PMH of asthma, former tobacco use presents with 2 weeks of cough, wheezing, and shortness of breath. She appears well and nontoxic. She was mildly tachycardic at 118 with otherwise normal vital signs. She has a dry cough and faint expiratory wheezing so was ordered a DuoNeb. CXR shows no acute process. Her symptoms are consistent with a URI/asthma exacerbation. She felt better on a prednisone burst x 5 days last week and is taking the Z-Francisco. She was prescribed a longer 9-day prednisone taper and instructed to continue her albuterol inhaler and follow-up with her PCP. She was discharged in stable condition. Radiography Diagnostic Testing: Clinical Impression(s) from Imaging Studies Chest X-Ray 12/05/24 13:45 IMPRESSION: No acute cardiopulmonary process. Reading Location: [facility] ED attending interpretation of 2 view chest x-ray shows normal heart size, no acute infiltrate. <Dr. Malcolm Erwin MD - Last Filed: 12/05/24 14:46> [facility] Radiography Diagnostic Testing: Clinical Impression(s) from Imaging Studies Chest X-Ray 12/05/24 13:45 IMPRESSION: No acute cardiopulmonary process. Reading Location: [facility] Treatment and Re-Evaluation Comments:: I have personally performed a face to face assessment of the patient and have reviewed the ANTONIA Note. I performed a substantive portion of the visit including all aspects of the following. My mcintyre findings include: History is wheezing and coughing with bronchospasm in the past week after being exposed to her mother's moldy basement. She has asthma, that was around the time she finished prednisone, and she was represcribed a azithromycin Tri-Francisco that she just finished taking but no more prednisone and she is wheezing a lot. Stop smoking a couple weeks ago. Exam is mild diffuse expiratory wheezes, and frequent bronchospasm. Heart regular keenly alert no edema. Medical Decison Making 2 view chest x-ray my interpretation is normal. Patient is doing little better after duo nebulizer treatment. She is conversive in full sentences and in no distress. Offered Kenalog injection she would rather do prednisone we will do a taper, first dose given here, she already has an inhaler. Follow-up advised. Other additions or changes: [None] Discharge Plan Triage Chief Complaint: Shortness of Breath ED Midlevel Provider: Yany Triana ED Provider: Malcolm Erwin Dx/Rx/DC Orders Clinical Impression: Acute asthma exacerbation Instructions: Asthma Action Plan Prescriptions: New prednisone 10 mg tablet 10 mg PO UD Qty: 30 0RF Rx Instructions: Take 4 tablets daily for 3 days, then 3 daily for 3 days, then 2 daily for 3 days, then 1 a day for 3 days No Action albuterol sulfate 1 PUFF inhaler 2 puff INHALATION Q4H PRN PRN (Reason: Sob &/Or Wheezing) norethindrone acetate 5 mg tablet 5 mg PO BID Patient Comments: TAKE 1 TABLET BY MOUTH THREE TIMES DAILY UNTIL BLEEDING STOPS, THEN TAKE 1 TABLET BY MOUTH TWICE DAILY FOR 2 DAYS, THEN ONCE DAILY UNTIL GONE omeprazole 40 mg capsule,delayed release(DR/EC) 40 mg PO DAILY ergocalciferol (vitamin D2) 1,250 mcg (50,000 unit) capsule 1,250 mcg PO QWEEK loratadine 10 mg tablet 10 mg PO DAILY Primary Care Provider: Ramona Ramsey Referrals: Ramona Ramsey MD [Primary Care Provider] - 1 Week if not improving Print Language: Luxembourgish Disposition Disposition: Home, Self Care Discharge Date/Time: 12/05/24 15:03
[2024-12-05 13:49] VITALS: O2SAT 96
[2024-12-05] MEDS: Ipratropium/Albuterol Sulfate 3 ML AMPUL.NEB INHALATION (13:53)
[2024-12-05 13:55] VITALS: PULSE 111; RESP 17
[2024-12-05] MEDS: predniSONE 20 MG Tablet 40 MG PO (14:48)
[2024-12-05 15:01] VITALS: BP 127/71; PULSE 111; RESP 17; TEMP 36.6; O2SAT 97
== END 2024-12-05 15:03 | disposition home or self-care (01) ==
PROVIDERS: Emergency Provider Emergency Medicine; PCP Family Medicine; Visit Provider Emergency Medicine
DX: J45.901 Unspecified asthma with (acute) exacerbation (principal); F17.210 Nicotine dependence, cigarettes, uncomplicated; K21.9 Gastro-esophageal reflux disease without esophagitis
CPT/HCPCS: 71046; 94640; 99283

== ENCOUNTER → 2025-02-09 | Outpatient (CLI) | payer MEDICAID, SELFPAY | END | disposition home or self-care (01) | LOC: LABSPEC 12:23 | PROVIDERS: PCP Family Medicine | DX: Z12.4 Encounter for screening for malignant neoplasm of cervix (principal) | CPT/HCPCS: 87491; 87591; 88175; G0145 ==